=== PATIENT | female | born 1990 | race Caucasian/White ===

== ENCOUNTER 2020-09-28 11:41 | Emergency (ER) | payer BC, MEDICAID, SELFPAY ==
[2020-09-28] VITALS (7 sets, daily range): BP systolic 113–141; BP diastolic 72–97; PULSE 89–124; RESP 18; TEMP 36.4–39.6; O2SAT 94–100; BMI 34.1
--- NOTE | 2020-09-28 12:13 | CT_ITS ---
STUDY: CT ABDOMEN AND PELVIS WITH CONTRAST REASON FOR EXAM: Female, 30 years old. Eval for left pyelo/stone. Left flank pain and vomiting. RADIATION DOSAGE (If Supplied By Facility): CTDIvol = ( 13.485 ) mGy, DLP = ( 1080.94 ) mGycm TECHNIQUE: Transaxial images were obtained from the dome of the diaphragm to the symphysis pubis without oral contrast. IV 100mL Isovue-370 was administered. Sagittal and coronal images were reconstructed. Individualized dose optimization techniques were used for this CT. COMPARISON: None. FINDINGS: Patchy left basilar infiltrate. The visualized portions of the heart are within normal limits. Normal liver. Normal gallbladder and extrahepatic biliary system. Normal spleen. Normal pancreas. Normal bilateral adrenal glands. Normal right kidney. Mild degree of left hydronephrosis due to a 5.8 mm calculus in the proximal left ureter. There is evidence of left perinephric stranding and engorgement of the left kidney. There is a small hiatal hernia. Normal small intestine. Normal colon. The appendix is visualized and appears normal. Normal abdominal aorta. Normal inferior vena cava. Normal retroperitoneum. Normal urinary bladder. Follicles are seen in the ovaries. Normal abdominal wall. Normal osseous structures. CT/Abdomen/Pelvis W IV Cont ONLY IMPRESSION: 5.8 mm pancreas and the proximal left ureter causing left hydronephrosis and left perinephric stranding. Patchy left basilar infiltrate. Electronically Signed: Mark Anthony Lin MD at 14:41 EDT , Service support ,
[2020-09-28] MEDS: 0.9% Normal Saline 1,000 ML 1000 ML IV (12:24)
[2020-09-28] MEDS: Morphine 4 MG/ML Syringe IV (12:24)
[2020-09-28] MEDS: Ondansetron 4 MG/2 ML Vial IV (12:25)
[2020-09-28 12:26] LABS: Absolute Lymphocyte Count 0.48 X10^3/uL (0.83-4.51); Absolute Neutrophil Count 11.2 X10^3/uL (2.0-7.7); Basophil# 0.03 X10^3/uL; Basophil% 0.3 % (0-1); Eosinophil# 0.02 X10^3/uL; Eosinophils% 0.2 % (0-5); Hematocrit 40.4 % (37-47); Hemoglobin 13.6 g/dL (12.0-15.0); Lymphocyte # 0.48 X10^3/ul (0.83-4.51); Mean Corp Hgb Conc 33.7 g/dL (32-36); Mean Platelet Vol. 10.3 fl (6.2-12.0); Monocyte# 0.13 X10^3/uL; Monocyte% 1.1 % (0-10); NRBC Flagged by Analyzer 0 % (0-5); Neutrophil # 11.23 X10^3/uL (2.7-7.7); Neutrophil % 94.1 % (47-70); POSITIVE DIFFERENTIAL YES; Platelet Count 185 K/mm3 (150-450); RBC Distribution Width CV 12.5 % (11.6-14.6); RBC Distribution Width SD 42.5 fl (35.1-43.9); Red Blood Count 4.39 M/mm3 (4.2-5.4); White Blood Count 11.9 K/mm3 (4.4-11.0)
[2020-09-28 12:29] LABS: Differential Indicated SCAN CRITERIA MET
--- NOTE | 2020-09-28 12:32 | EDS_ITS ---
HPI History of Present Illness Chief Complaint: Flank Pain Informant: patient Narrative Narrative: Patient is a 30-year-old female who presents to the emergency department for left-sided flank pain, fever, nausea/vomiting. States her initial symptoms started 1 week ago. She had a urine checked at an urgent care a few days prior which did show blood. She was not given any other medications for treatment. She states that her pain has become severely worse. No radiation of the pain. She states that she does have a history of D&C as well as tubal ligation. No other abdominal surgeries. She does have a history of kidney infections. No known history of kidney stones. She denies any chest pain or shortness of breath. She states that she did have a temperature up to 103. She is been taking Tylenol and ibuprofen at home. She has some burning prior to urination but no increased frequency or hematuria. No change in bowel movements. [facility] Medical History (Updated 09/28/20 @ 15:[address] Cl Calvin DO) Hypothyroidism Home Medications levothyroxine 50 mcg PO DAILY 09/28/20 [History Last Taken Unknown] Allergy/AdvReac Type Severity Reaction Status Date / Time sertraline [From Zoloft] AdvReac PT UNSURE Verified 09/28/20 11:45 OF REACTION Social History Smoking Status: Current every day smoker tobacco type: cigarettes ROS ROS ED Constitutional Constitutional ED: Reports chills and fever(s) Eyes Eyes: Denies change in vision ENT ENT ED: Denies epistaxis or rhinorrhea Cardiovascular Cardiovascular: Denies chest pain or palpitations Respiratory/Chest Respiratory/Chest: Denies cough, dyspnea or dyspnea on exertion Gastrointestinal Gastrointestinal: Reports nausea and vomiting; Denies abdominal pain or diarrhea Genitourinary Genitourinary ED: Reports dysuria; Denies hematuria or urinary frequency Musculoskeletal Musculoskeletal: Reports back pain; Denies neck pain Integumentary Denies rash Neurologic Neurologic: Denies dizziness, headache(s) or weakness EXAM Physical Exam Const Vital Signs: 09/28/20 11:41 09/28/20 11:45 09/28/20 11:50 Temperature 97.5 F L 97.5 F L Temperature Source Temporal Temporal Pulse Rate 89 89 Respiratory Rate 18 18 Respiratory Effort Normal Non-Labored Blood Pressure 121/97 H Blood Pressure Mean 105 Pulse Ox 100 100 Oxygen Delivery Method Room Air Room Air 09/28/20 13:22 09/28/20 14:32 09/28/20 15:19 Temperature 103.2 F H 103 F H Temperature Source Oral Temporal Pulse Rate 124 H Respiratory Rate 18 Respiratory Effort Blood Pressure 113/72 141/77 H Blood Pressure Mean 85 98 Pulse Ox 94 Oxygen Delivery Method 09/28/20 15:36 09/28/20 16:00 Temperature 101.5 F H 100 F H Temperature Source Temporal Pulse Rate 121 H 116 H Respiratory Rate 18 18 Respiratory Effort Blood Pressure 136/82 H 132/74 H Blood Pressure Mean 100 93 Pulse Ox 96 94 Oxygen Delivery Method Room Air Positive well nourished and well developed General Appearance ED: well developed and NAD HEENT Reports normocephalic, head/scalp atraumatic and moist mucous membranes Eyes PERRL and EOMs intact bilaterally Neck supple Chest Wall inspection of chest normal Resp normal respiratory effort and clear to auscultation bilaterally Auscultation: Negative for rales, rhonchi or wheezes Cardio regular rate, regular rhythm and no murmurs GI normal to inspection, nondistended, normoactive bowel sounds and non-tender Palpation: soft; Negative for guarding or rebound tenderness present Back/Spine Back/Spine Narrative: Left-sided CVA tenderness Extremity normal to inspection General Extremety ED: Negative for edema or tenderness General Extremity: Negative for edema Neuro Sensorium / Orientation: alert Motor Exam: strength 5/5 throughout Psych mental status grossly normal Skin no rashes or lesions noted MDM MDM MDM Narrative Medical decision making narrative: Patient presents to the emergency department for left-sided flank pain, fever, vomiting. On arrival to the ED she is afebrile this time but having home fevers. Will check basic lab work along with urine and cultures. CT scan of the abdomen/pelvis being obtained. She is given a dose of morphine and Zofran for symptomatic treatment. Patient's temperature rechecked throughout ED stay and it did elevate to 103. She does have a mild elevation of white blood cell count has mild elevation of her lactic acid. CT scan did show a left ureteral stone with stranding around the left kidney. Unfortunately do not have urology coverage so she will need to be transferred out due to sepsis secondary to infected kidney stone. She is started on antibiotics here. Patient's pain has been difficult to control. She is received hydromorphone, Toradol, morphine, Tylenol. I did speak with [facility] who did accept the patient. We are currently awaiting bed availability and transfer. This time she is signed out due to end of shift. Lab Data Labs: Laboratory Results - last 24 hr 09/28/20 09/28/20 09/28/20 12:00 12:00 12:25 WBC 11.9 H RBC 4.39 Hgb 13.6 Hct 40.4 MCV 92.0 MCH 31.0 MCHC 33.7 RDW Std Deviation 42.5 RDW Coeff of Erika 12.5 Plt Count 185 MPV 10.3 Immature Gran % (Auto) 0.300 Neut % (Auto) 94.1 H Lymph % (Auto) 4.0 L [place] % (Auto) 1.1 Eos % (Auto) 0.2 Baso % (Auto) 0.3 Absolute Neuts (auto) 11.2 H Absolute Lymphs (auto) 0.48 L Nucleated RBC % 0 Differential Comment COMMENT Sodium 136 Potassium 3.4 L Chloride 105 Carbon Dioxide 26.0 Anion Gap 5 BUN 11 Creatinine 0.88 Estim Creat Clear Calc 84.11 Est GFR (MDRD) Af Amer 97 Est GFR (MDRD) Non-Af 81 BUN/Creatinine Ratio 12.6 Glucose 103 Lactic Acid 2.3 H* Calcium 8.8 Total Bilirubin 1.40 H AST 31 ALT 44 Alkaline Phosphatase 67 Total Protein 7.8 Albumin 3.8 Globulin 4.0 Albumin/Globulin Ratio 1.0 Urine Color Urine Clarity Urine pH Ur Specific [place] Urine Protein Urine Glucose (UA) Urine Ketones Urine Occult Blood Urine Nitrite Urine Bilirubin Urine Urobilinogen Ur Leukocyte Esterase Urine RBC Urine WBC Ur Squamous Epith Cells Urine Bacteria Urine Mucus Urine Test 09/28/20 09/28/20 12:55 12:55 WBC RBC Hgb Hct MCV MCH MCHC RDW Std Deviation RDW Coeff of Erika Plt Count MPV Immature Gran % (Auto) Neut % (Auto) Lymph % (Auto) [place] % (Auto) Eos % (Auto) Baso % (Auto) Absolute Neuts (auto) Absolute Lymphs (auto) Nucleated RBC % Differential Comment Sodium Potassium Chloride Carbon Dioxide Anion Gap BUN Creatinine Estim Creat Clear Calc Est GFR (MDRD) Af Amer Est GFR (MDRD) Non-Af BUN/Creatinine Ratio Glucose Lactic Acid Calcium Total Bilirubin AST ALT Alkaline Phosphatase Total Protein Albumin Globulin Albumin/Globulin Ratio Urine Color Yellow Urine Clarity Cloudy Urine pH 7.0 Ur Specific [place] 1.010 Urine Protein 30 H Urine Glucose (UA) Normal Urine Ketones Negative Urine Occult Blood 150 H Urine Nitrite Negative Urine Bilirubin Negative Urine Urobilinogen Normal Ur Leukocyte Esterase 500 H Urine RBC 5-10 SEEN Urine WBC >100 SEEN Ur Squamous Epith Cells 0-5 SEEN Urine Bacteria 0 SEEN Urine Mucus 0 SEEN Urine Test Negative Radiography Diagnostic Testing: Radiology Impression Abdomen/Pelvis CT 09/28/20 12:13 IMPRESSION: 5.8 mm pancreas and the proximal left ureter causing left hydronephrosis and left perinephric stranding. Patchy left basilar infiltrate. Electronically Signed: Mark Anthony Lin MD at 14:41 EDT , Service support , Discharge Plan Triage Chief Complaint: Flank Pain ED Provider: Cl Calvin Dx/Rx/DC Orders Clinical Impression: Sepsis, Kidney stone, UTI (urinary tract infection) Prescriptions: No Action levothyroxine 50 mcg tablet 50 mcg PO DAILY RF: 0 Primary Care Provider: Care Physician,No Primary Referrals: Care Physician,No Primary [Primary Care Provider] - Disposition Disposition: Acute Care Hospital Discharge Location: [facility] Discharge Date/Time: 09/28/20 17:05
[2020-09-28 12:41] LABS: AST(SGOT) 31 U/L (15-37); Alanine Aminotransfer ALT/SGPT 44 U/L (13-56); Albumin, Serum 3.8 g/dL (3.2-5.0); Alkaline Phosphatase 67 U/L (45-117); Anion Gap 5 (5-15); BUN 11 mg/dL (7-18); BUN/Creat Ratio 12.6 RATIO (10-20); Calcium,Total 8.8 mg/dL (8.5-10.1); Chloride 105 mmol/L (98-107); Creatinine, Serum 0.88 mg/dL (0.55-1.02); EST Glomerular Filtration Rate 81 mL/min (>60); Est Glom Filt Rate - Afr Amer 97 mL/min (>60); Estimated Creatinine Clearance 84.11 ml/min; Glucose 103 mg/dL (74-106); Potassium 3.4 mmol/L (3.5-5.1); Protein, Total 7.8 g/dL (6.4-8.2); Sodium Level 136 mmol/L (136-145)
[2020-09-28] MEDS: HYDROmorphone 1 MG/ML Syringe IV ×2 (12:54→17:28)
--- NOTE | 2020-09-28 12:57 | CM.ED ---
SW Note Referral Source: Case Find Referral Reason: No Primary Care Physican (PCP) SW met with patient and her in the room. SW explained that a review of the chart noted that patient had no PCP. SW provided patient's with list of PCP at [facility]. SW asked if any additional needs and patient and indicated no further needs. Plan: Provided patient with list of PCP Bre SANCHEZ
[2020-09-28 13:03] LABS: Lactic Acid 2.3 mmol/L (0.4-1.9)
[2020-09-28 13:03] LABS: Bacteria 0 SEEN /hpf (None Seen); Mucous, Urine 0 SEEN /hpf (<or=2+)
[2020-09-28 13:12] LABS: Color, Urine Yellow (Yellow); Glucose, Dipstick Normal (Normal); Internal QC Validated? YES +Cl - CLEAR BKGD; Ketone-Dipstick Negative (Negative); Leukocyte Esterase-Dipstick 500 /ul (Negative); Nitrite-Dipstick Negative (Negative); Occult Blood-Urine 150 /ul (Negative); Pregnancy, Urine Negative Negative; Protein-Dipstick 30 mg/dl (Negative); Urine Bilirubin Dipstick Negative (Negative); Urine Clarity Cloudy (Clear); Urine Urobilinogen Normal (Normal)
[2020-09-28 13:24] LABS: Squamous Epithelial Cells - UA 0-5 SEEN /hpf (5-10); White Blood Cells >100 SEEN /hpf (0-5)
[2020-09-28 13:25] LABS: Red Blood Cells-Urine 5-10 SEEN /hpf (0-5)
[2020-09-28] MEDS: Acetaminophen 325 MG Tablet 650 MG PO (14:36)
[2020-09-28] MEDS: Ketorolac 15 MG/ML Vial IV (14:37)
[2020-09-28] MEDS: 0.9% Normal Saline 1,000 ML 125 ML IV (15:24)
[2020-09-28 16:32] LABS: Reflex Lactate? Y
--- NOTE | 2020-09-29 02:25 | ED.RN ---
POSITIVE BLOOD CULTURES REPORTED TO ERIC SU[facility] AT [facility] OVER THE PHONE. RESULTS WERE ALSO FAXED TO [id number],
== END 2020-09-28 17:05 | disposition short-term general hospital (02) ==
PROVIDERS: Emergency Provider Emergency Medicine
DX: A41.9 Sepsis, unspecified organism (principal); N13.6 Pyonephrosis; E03.9 Hypothyroidism, unspecified; F17.210 Nicotine dependence, cigarettes, uncomplicated; Z79.899 Other long term (current) drug therapy; Z87.440 Personal history of urinary (tract) infections
CPT/HCPCS: 74177; 80053; 81001; 81025; 83605; 85025; 87040; 87077; 87086; 87088; 87186; 87426; 96365; 96366; 96375; 96376; 99285; J7030; Q9967; A4216; J0696; J2405

== ENCOUNTER 2020-10-16 11:21 | Emergency (ER) | payer BC, MEDICAID, SELFPAY ==
[2020-10-16 11:21] VITALS: BP 109/78; PULSE 84; RESP 16; TEMP 36.3; O2SAT 99; BMI 33.5
--- NOTE | 2020-10-16 11:45 | CT_ITS ---
EXAM: CT ABDOMEN AND PELVIS WITHOUT INTRAVENOUS CONTRAST : 1990 CLINICAL INDICATION: Eval ureteral stone TECHNIQUE: Helically acquired images were obtained of the abdomen and pelvis without intravenous contrast. This CT exam was performed using one or more of the following dose reduction techniques: automated exposure control, adjustment of the mA and/or kV according to patient size, and/or use of iterative reconstruction technique. This report was created using [employer] report generation technology. COMPARISON: 09/28/2020 FINDINGS: LOWER THORAX: Unremarkable. Lung bases are clear. No cardiomegaly. No significant pericardial effusion. ABDOMEN: LIVER: Unremarkable. Homogeneous. GALLBLADDER AND BILE DUCTS: Unremarkable. No calcified gallstones. No gallbladder distention or wall edema. No intra- or extrahepatic biliary ductal dilation. PANCREAS: Unremarkable. No focal cystic mass. SPLEEN: Unremarkable. Normal size without focal cystic or solid mass. ADRENALS: Unremarkable. No nodules. KIDNEYS AND URETERS: There is right-sided hydronephrosis. There is a 6 mm stone in the proximal right ureter. Unchanged from the reference exam. Normal renal size and position. STOMACH AND BOWEL: Unremarkable. No stomach or bowel distention. No focal inflammatory change. PELVIS: APPENDIX: No evidence of acute appendicitis. BLADDER: Unremarkable. REPRODUCTIVE: Unremarkable as visualized. No mass. ABDOMEN and PELVIS: INTRAPERITONEAL SPACE: Unremarkable. No ascites or other fluid collection. No free air. BONES/JOINTS: Unremarkable. No suspicious lytic or blastic abnormality. SOFT TISSUES: Unremarkable. No discrete abdominal or pelvic wall hernia. VASCULATURE: Unremarkable. Abdominal aorta is non-dilated. LYMPH NODES: Unremarkable. No enlarged lymph nodes. CT/Abdomen/Pelvis without Cont IMPRESSION: Obstruction of the left collecting system due to a 6 mm stone in the proximal ureter. This does not appear to be significantly changed from the reference examination. Individualized dose optimization techniques were used for this CT. at 1247 Reported and signed by: Bj Jiang MD Electronically Signed: Bj Jiang MD at 12:46 EDT Tel , Service support ,
--- NOTE | 2020-10-16 11:51 | EDS_ITS ---
HPI History of Present Illness Chief Complaint: Flank Pain Informant: patient Narrative Narrative: Patient is a 30-year-old female who presents to the emergency department for left flank pain. This started on Thursday and has been becoming progressively worse. She has been taking ibuprofen and Tylenol for her symptoms. She was seen here in the emergency department on the of this month and diagnosed with a septic kidney stone. She had to be transferred to outside facility at that time. She states that she was discharged after antibiotics and was doing much better. She did not have pain until it returned 3 days ago. She denies any urinary symptoms. She does have some chills but denies any fevers. She has been nauseous but not vomiting. No change in moving her bowels. She states she was sent home with antibiotics and took them all except for the last day which she ended on the . She currently rates the flank pain as a 5 out of 10. It does not radiate to her abdomen. [facility] Medical History (Updated 10/16/20 @ 13:[address] Cl Calvin DO) Hypothyroidism Home Medications levothyroxine 50 mcg PO DAILY 09/28/20 [History Last Taken Unknown] cephalexin 500 mg PO BID 10 Days #20 cap 10/16/20 [Rx Last Taken Unknown] hydrocodone-acetaminophen 1 tab PO Q6H PRN PRN 3 Days #10 tablet 10/16/20 [Rx Last Taken Unknown] naproxen [Naprosyn] 500 mg PO BID PRN 10 Days #20 tab 10/16/20 [Rx Last Taken Unknown] Allergy/AdvReac Type Severity Reaction Status Date / Time shellfish derived Allergy PT UNSURE Verified 10/16/20 11:24 OF REACTION sertraline [From Zoloft] AdvReac PT UNSURE Verified 09/28/20 11:45 OF REACTION Social History Smoking Status: Current every day smoker tobacco type: cigarettes ROS ROS ED Constitutional Constitutional ED: Reports chills; Denies fever(s) Eyes Eyes: Denies change in vision ENT ENT ED: Denies epistaxis or rhinorrhea Cardiovascular Cardiovascular: Denies chest pain or palpitations Respiratory/Chest Respiratory/Chest: Denies cough, dyspnea or dyspnea on exertion Gastrointestinal Gastrointestinal: Reports nausea; Denies abdominal pain, diarrhea or vomiting Genitourinary Genitourinary ED: Denies dysuria, hematuria or urinary frequency Musculoskeletal Musculoskeletal: Reports back pain; Denies neck pain Integumentary Denies rash Neurologic Neurologic: Denies dizziness, headache(s) or weakness EXAM Physical Exam Const Vital Signs: 10/16/20 11:21 10/16/20 11:51 Temperature 97.4 F L Temperature Source Temporal Pulse Rate 84 Respiratory Rate 16 Respiratory Effort Normal Non-Labored Respiratory Pattern Normal Blood Pressure 109/78 Blood Pressure Mean 88 Pulse Ox 99 Oxygen Delivery Method Room Air Positive well nourished and well developed General Appearance ED: well developed and NAD HEENT Reports normocephalic and head/scalp atraumatic Eyes PERRL and EOMs intact bilaterally Neck supple Chest Wall inspection of chest normal Resp normal respiratory effort and clear to auscultation bilaterally Auscultation: Negative for rales, rhonchi or wheezes Cardio regular rate, regular rhythm and no murmurs GI normal to inspection, nondistended, normoactive bowel sounds and non-tender Palpation: soft; Negative for guarding or rebound tenderness present Back/Spine Back/Spine Narrative: Left CVA tenderness. Extremity normal to inspection General Extremety ED: Negative for edema or tenderness General Extremity: Negative for edema Neuro Sensorium / Orientation: alert Motor Exam: strength 5/5 throughout Psych mental status grossly normal Skin no rashes or lesions noted MDM MDM MDM Narrative Medical decision making narrative: Patient presents to the emergency department for left flank pain. She was recently diagnosed with septic kidney stone earlier this month. She did complete antibiotics for this. She denies having surgery for the stone and they told her it was too large to pass. On arrival to the ED vital signs within normal limits. She is in no acute distress currently. Will recheck CT scan and urinalysis. Patient CT scan did still show the 6 mm proximal ureteral stone. Urine does show 1+ bacteria with 10-25 white blood cells, 500 leukocyte esterase but no nitrites. She otherwise is well-appearing. She is afebrile. No evidence of sepsis. I did call the urologist at [facility] who took care of her previously. They were actually able to make an appointment available with for her tomorrow at 11 AM. Patient does feel comfortable being discharged. Given the fact she has grown out Proteus in her bloodstream as well as the urine at the last hospital stay we will cover her with antibiotics. She is given a first dose here and given a prescription. She is also given a prescription for pain medication to take as needed. Return precautions are reviewed with her including develop any fevers, chills, worsening pain. She is agreeable with this plan. All questions were answered. Lab Data Labs: Laboratory Results - last 24 hr 10/16/20 11:52 Urine Color Yellow Urine Clarity Clear Urine pH 5.0 Ur Specific [place] 1.015 Urine Protein 30 H Urine Glucose (UA) Normal Urine Ketones Negative Urine Occult Blood 10 H Urine Nitrite Negative Urine Bilirubin Negative Urine Urobilinogen 1 H Ur Leukocyte Esterase 500 H Urine RBC 0 SEEN Urine WBC 10-25 SEEN Ur Squamous Epith Cells 0-5 SEEN Urine Bacteria 1+ Urine Mucus 2+ Radiography Diagnostic Testing: Radiology Impression Abdomen/Pelvis CT 10/16/20 11:45 IMPRESSION: Obstruction of the left collecting system due to a 6 mm stone in the proximal ureter. This does not appear to be significantly changed from the reference examination. Individualized dose optimization techniques were used for this CT. at 1247 Reported and signed by: Bj Jiang MD Electronically Signed: Bj Jiang MD at 12:46 EDT Tel , Service support , Discharge Plan Triage Chief Complaint: Flank Pain ED Provider: Cl Calvin Dx/Rx/DC Orders Clinical Impression: Renal colic on left side Instructions: ED Kidney Stone w/ Colic Prescriptions: New hydrocodone-acetaminophen 5-325 mg tablet 1 tab PO Q6H PRN PRN (Reason: Pain) 3 Days Qty: 10 RF: 0 naproxen [Naprosyn] 500 mg tablet 500 mg PO BID PRN (Reason: pain) 10 Days Qty: 20 RF: 0 cephalexin 500 mg capsule 500 mg PO BID 10 Days Qty: 20 RF: 0 No Action levothyroxine 50 mcg tablet 50 mcg PO DAILY RF: 0 Stand Alone Forms: ED Work / School Excuse Primary Care Provider: Care Physician,No Primary Referrals: Care Physician,No Primary [Primary Care Provider] - Activity Restrictions/Additional Instructions: Please follow-up with urologist tomorrow 10/17/2020. The urologist office is at [address] [place] [id number]. The appointment is at 11 AM and they requested that you arrive there at 10:30 AM. Disposition Disposition: Home, Self Care Discharge Date/Time: 10/16/20 13:55
[2020-10-16 11:57] LABS: Red Blood Cells-Urine 0 SEEN /hpf (0-5)
[2020-10-16] MEDS: Ketorolac 30 MG/ML Syringe IM (12:02)
[2020-10-16 12:03] LABS: Color, Urine Yellow (Yellow); Glucose, Dipstick Normal (Normal); Ketone-Dipstick Negative (Negative); Leukocyte Esterase-Dipstick 500 /ul (Negative); Nitrite-Dipstick Negative (Negative); Occult Blood-Urine 10 /ul (Negative); Protein-Dipstick 30 mg/dl (Negative); Specific Gravity, Urine 1.015 (1.002-1.030); Urine Bilirubin Dipstick Negative (Negative); Urine Clarity Clear (Clear); Urine Urobilinogen 1 mg/dl (Normal)
[2020-10-16 12:18] LABS: Bacteria 1+ /hpf (None Seen); Mucous, Urine 2+ /hpf (<or=2+); Squamous Epithelial Cells - UA 0-5 SEEN /hpf (5-10); White Blood Cells 10-25 SEEN /hpf (0-5)
--- NOTE | 2020-10-16 13:38 | CM.ED ---
KATERYNA Note: Referral Source: Case Find Referral Reason: No primary care physician (PCP) SW reviewed chart and noted that patient did not have PCP. KATERYNA provided patient with handout from [facility] Physicians List including [facility] and [facility] MD. No further issues or needs identified. SW remains available. Plan: Home with resources Bre Bradshaw
[2020-10-16] MEDS: Cephalexin 250 MG Capsule 500 MG PO (13:54)
== END 2020-10-16 13:55 | disposition home or self-care (01) ==
PROVIDERS: Emergency Provider Emergency Medicine
DX: N23 Unspecified renal colic (principal); F17.210 Nicotine dependence, cigarettes, uncomplicated; E03.9 Hypothyroidism, unspecified; Z79.899 Other long term (current) drug therapy
CPT/HCPCS: 74176; 81001; 87086; 87088; 96372; 99283

== ENCOUNTER 2021-05-19 13:55 | Emergency (ER) | payer MEDICAID, SELFPAY ==
[2021-05-19 13:55] VITALS: BP 114/80; PULSE 84; RESP 16; TEMP 37.7; O2SAT 100; BMI 29.1
--- NOTE | 2021-05-19 14:11 | CT_ITS ---
STUDY: CT ABDOMEN AND PELVIS WITHOUT CONTRAST REASON FOR EXAM: Female, 30 years old. Pain RADIATION DOSAGE (If Supplied By Facility): CTDIvol = ( 8.55 ) mGy, DLP = ( 459.54 ) mGycm TECHNIQUE: Transaxial images were obtained from the dome of the diaphragm to the symphysis pubis without oral contrast, and without intravenous contrast. Sagittal and coronal images were reconstructed. Individualized dose optimization techniques were used for this CT. COMPARISON: 10/16/2020 FINDINGS: Minimal dependent atelectasis in the left lower lobe. Unremarkable liver, spleen, pancreas, adrenals, and gallbladder on this unenhanced study. A 0.2 cm nonobstructing stone in the lower pole of the left kidney. No additional radiopaque urolithiasis on either side. Normal appendix. Small to moderate amount of retained stool in the colon with no evidence of bowel obstruction. No free air in the abdomen and pelvis. No bulky adenopathy. No abdominal aortic aneurysm. Sections through the pelvis demonstrate no adnexal mass. No radiopaque stone in the urinary bladder. Trace free fluid in the cul-de-sac. No acute osseous abnormality. CT/Abdomen/Pelvis without Cont IMPRESSION: A tiny nonobstructing stone in the lower pole of the left kidney. No other acute finding in the abdomen and pelvis on this unenhanced study. Electronically Signed: Jeremy Boss MD at 15:41 EDT ,
--- NOTE | 2021-05-19 14:12 | EX.ED.DYSGE1 ---
HPI History of Present Illness Chief Complaint: General Illness Detail of Chief Complaint: Flank pain Informant: patient and spouse/S.O. Onset/Context/Timing Onset: Days Context: Gradual Onset Timing: Continuous Current Severity: Moderate Maximum Severity: Moderate Narrative Narrative: 30-year-old female history of hypothyroidism. Prior history of a kidney stone with UTI and sepsis and had that the stones surgically removed. States that she has had right flank pain for last 2 days. Denies any dysuria. She said she treated with Motrin with some relief. She had a fever as high as 103. She denies any nausea vomiting or diarrhea. No cough. No abdominal pain other than the flank pain. Prior similar symptoms: Yes Recent Illness/Hospitalization: No PFSH PFSH Medical History Hypothyroidism Home Medications levothyroxine 50 mcg PO DAILY 09/28/20 [History Last Taken Unknown] diazepam [Valium] 5 mg PO TID PRN 4 Days #10 tab 05/19/21 [Rx Last Taken Unknown] Allergy/AdvReac Type Severity Reaction Status Date / Time shellfish derived Allergy PT UNSURE Verified 10/16/20 11:24 OF REACTION sertraline [From Zoloft] AdvReac PT UNSURE Verified 09/28/20 11:45 OF REACTION Social History Smoking Status: Current every day smoker tobacco type: cigarettes ROS ROS ED ROS Narrative Right flank pain. Fever. Constitutional Constitutional ED: Reports fever(s) Eyes Eyes: Denies change in vision ENT ENT ED: Denies ear pain Cardiovascular Cardiovascular: Denies chest pain or palpitations Respiratory/Chest Respiratory/Chest: Denies cough or dyspnea Gastrointestinal Gastrointestinal: Denies abdominal pain, diarrhea, nausea or vomiting Genitourinary Genitourinary ED: Denies dysuria or hematuria Musculoskeletal Musculoskeletal: Reports back pain and other Details: Right flank pain. ; Denies myalgias Integumentary Denies rash Neurologic Neurologic: Denies headache(s) Endocrine Endocrinology: Denies polyuria Allergic/Immunologic Allergic/Immunologic ED: Denies urticaria EXAM Physical Exam Narrative Exam Narrative: 30-year-old no acute distress. Vital signs are stable. She has a temperature nine 9.8. Does not look septic or toxic. H EENT exam unremarkable. Neck nontender. No lymphadenopathy. Lungs clear to auscultation bilaterally. Heart regular rhythm rate about 85 no murmur. Abdomen soft, nontender, nondistended normal bowel sounds no peritoneal signs. No right upper or lower quadrant tenderness. No hernia or mass. Moving all 4 extremities. Back right CVA tenderness. Otherwise unremarkable. Neurologically she is awake and alert. Const Vital Signs: 05/19/21 13:55 05/19/21 14:48 Temperature 99.8 F H Temperature Source Temporal Pulse Rate 84 Respiratory Rate 16 Respiratory Effort Normal Respiratory Pattern Normal Blood Pressure 114/80 Blood Pressure Mean 91 Pulse Ox 100 Oxygen Delivery Method Room Air Positive well nourished and well developed; Negative for obese, cachectic, contractures or unkempt General Appearance ED: well developed and NAD; Negative for unkempt, cachectic, contractures, cyanotic, diaphoretic or pallor Nutritional Appearance: Negative for cachectic or obese HEENT Reports moist mucous membranes Negative for trauma or tenderness Eyes PERRL and EOMs intact bilaterally General Eye ED: Negative for pale conjunctiva or scleral icterus Neck no lymphadenopathy, supple and no JVD General: Negative for tenderness Chest Wall inspection of chest normal and palpation of chest normal Resp normal respiratory effort and clear to auscultation bilaterally Effort and Inspection: Negative for pain with movement Auscultation: Negative for rales, rhonchi or wheezes Cardio regular rate, regular rhythm, S1 normal heart sound, S2 normal heart sound and no murmurs GI normal to inspection, nondistended, normoactive bowel sounds, non-tender, non-distended and no masses Auscultation: normoactive bowel sounds Palpation: soft; Negative for tender, guarding or rebound tenderness present Back/Spine Negative for no CVA tenderness General Back: CVA tenderness Cervical Spine: Negative for cervical spine tenderness Thoracic Spine / Upper Back: Negative for thoracic spinal tenderness or paraspinal muscle tenderness Extremity normal to inspection General Extremety ED: Negative for edema or tenderness General Extremity: Negative for edema Neuro oriented x3 and CN's II-XII intact bilaterally Sensorium / Orientation: alert; Negative for orientation impaired, lethargic or stuporous Motor Exam: strength 5/5 throughout Psych mental status grossly normal Appearance: Negative for unkempt Attitude: No agitated Mood & Affect: Negative for depressed or tearful Skin no rashes or lesions noted, no wounds and No skin turgor normal General Skin Exam: Negative for elasticity normal, jaundice or pallor MDM MDM MDM Narrative Medical decision making narrative: 30-year-old female complaining of right flank pain. History of stones and previously a stone with UTI became septic. CAT scan labs are pending. Treated with IV morphine, Zofran and Toradol along with IV fluids. She has had a prior tubal ligation. Exam 3:30 PM patient is doing better but still has pain. Her significant other at bedside asked me if this could at all possible be musculoskeletal a 20 minutes very good possibility Coso forward on the specific cause and her tests are coming back normal. She does have reproducible back pain. She will be given another dose of morphine. Urine is also negative. This appears to be secondary to musculoskeletal back pain. She has no signs of urinary tract infection or kidney stone. Discharged home with a prescription of Valium. For muscle spasm. Otherwise ibuprofen, hot shower massage. Lab Data Attestation: I reviewed the patient's lab results. Lab results narrative: CBC shows a white count of 3.5 H&H of 13 and 38. Platelets 168. No bands. Serum test negative. Electrolytes unremarkable gap of 5 normal BUN and creatinine. Glucose 78. Urinalysis normal. No white cells or red cells. Labs: Laboratory Results - last 24 hr 05/19/21 05/19/21 05/19/21 14:45 14:45 14:45 WBC 3.5 L RBC 4.27 Hgb 13.0 Hct 38.1 MCV 89.2 MCH 30.4 MCHC 34.1 RDW Std Deviation 40.5 RDW Coeff of Erika 12.4 Plt Count 168 MPV 10.8 Immature Gran % (Auto) 0.300 Neut % (Auto) 78.8 H Lymph % (Auto) 12.4 L [place] % (Auto) 7.6 Eos % (Auto) 0.3 Baso % (Auto) 0.6 Absolute Neuts (auto) 2.8 Absolute Lymphs (auto) 0.44 L Nucleated RBC % 0 Differential Comment SCANNED Diff Path Review May foll Sodium 136 Potassium 4.2 Chloride 106 Carbon Dioxide 25.0 Anion Gap 5 BUN 7 Creatinine 0.66 Estim Creat Clear Calc 112.15 Est GFR (MDRD) Af Amer 135 Est GFR (MDRD) Non-Af 111 BUN/Creatinine Ratio 10.6 Glucose 78 Calcium 8.5 Serum , Qual NEGATIVE Urine Color Urine Clarity Urine pH Ur Specific [place] Urine Protein Urine Glucose (UA) Urine Ketones Urine Occult Blood Urine Nitrite Urine Bilirubin Urine Urobilinogen Ur Leukocyte Esterase Urine RBC Urine WBC Ur Squamous Epith Cells Urine Bacteria Urine Mucus 05/19/21 15:15 WBC RBC Hgb Hct MCV MCH MCHC RDW Std Deviation RDW Coeff of Erika Plt Count MPV Immature Gran % (Auto) Neut % (Auto) Lymph % (Auto) [place] % (Auto) Eos % (Auto) Baso % (Auto) Absolute Neuts (auto) Absolute Lymphs (auto) Nucleated RBC % Differential Comment Diff Path Review Sodium Potassium Chloride Carbon Dioxide Anion Gap BUN Creatinine Estim Creat Clear Calc Est GFR (MDRD) Af Amer Est GFR (MDRD) Non-Af BUN/Creatinine Ratio Glucose Calcium Serum , Qual Urine Color Yellow Urine Clarity Clear Urine pH 8.0 Ur Specific [place] 1.010 Urine Protein Negative Urine Glucose (UA) Normal Urine Ketones Negative Urine Occult Blood Negative Urine Nitrite Negative Urine Bilirubin Negative Urine Urobilinogen Normal Ur Leukocyte Esterase Negative Urine RBC 0 SEEN Urine WBC 0 SEEN Ur Squamous Epith Cells 0 SEEN Urine Bacteria 0 SEEN Urine Mucus 0 SEEN Radiography Diagnostic Testing: Clinical Impression(s) from Imaging Studies Abdomen/Pelvis CT 05/19/21 14:11 IMPRESSION: A tiny nonobstructing stone in the lower pole of the left kidney. No other acute finding in the abdomen and pelvis on this unenhanced study. Electronically Signed: Jeremy Boss MD at 15:41 EDT Reading Location ID and State: [address] [place] [address] Tel , Service support , Discharge Plan Triage Chief Complaint: General Illness ED Provider: Laurent Ya Dx/Rx/DC Orders Clinical Impression: Acute flank pain, Back muscle spasm Instructions: ED Muscle Spasm Prescriptions: New diazepam [Valium] 5 mg tablet 5 mg PO TID PRN (Reason: muscle spasm) 4 Days Qty: 10 RF: 0 No Action levothyroxine 50 mcg tablet 50 mcg PO DAILY RF: 0 Primary Care Provider: Care Physician,No Primary Referrals: Jeremiah Jiménez MD [STAFF PHYSICIAN] - 3-5 Days if not improving Care Physician,No Primary [Primary Care Provider] - Activity Restrictions/Additional Instructions: Your back pain appears to be muscle spasms. There is no signs of a kidney stone. No signs of infection. Motrin for pain and inflammation. Valium as a muscle relaxer. Hot shower. Warm bath. Massage. This should progressively get better. Disposition Disposition: Home, Self Care
[2021-05-19] MEDS: 0.9% Normal Saline 1,000 ML 1000 ML IV (14:35)
[2021-05-19] MEDS: morphine 8 MG/ML Syringe IV (14:36)
[2021-05-19] MEDS: Ondansetron 4 MG/2 ML Vial IV (14:36)
[2021-05-19] MEDS: Ketorolac 30 MG/ML Syringe IV (14:36)
[2021-05-19 14:51] LABS: Absolute Lymphocyte Count 0.44 X10^3/uL (0.83-4.51); Absolute Neutrophil Count 2.8 X10^3/uL (2.0-7.7); Basophil# 0.02 X10^3/uL; Basophil% 0.6 % (0-1); Differential Indicated SCAN CRITERIA MET; Eosinophil# 0.01 X10^3/uL; Eosinophils% 0.3 % (0-5); Hematocrit 38.1 % (37-47); Lymphocyte # 0.44 X10^3/ul (0.83-4.51); Lymphocyte % 12.4 % (19-41); Mean Corp Hgb Conc 34.1 g/dL (32-36); Mean Corpuscular Hgb 30.4 pg (27.0-32.0); Mean Corpuscular Volume 89.2 fL (81-99); Mean Platelet Vol. 10.8 fl (6.2-12.0); Monocyte# 0.27 X10^3/uL; Monocyte% 7.6 % (0-10); NRBC Flagged by Analyzer 0 % (0-5); Neutrophil # 2.79 X10^3/uL (2.7-7.7); Neutrophil % 78.8 % (47-70); POSITIVE DIFFERENTIAL YES; Platelet Count 168 K/mm3 (150-450); RBC Distribution Width CV 12.4 % (11.6-14.6); RBC Distribution Width SD 40.5 fl (35.1-43.9); Red Blood Count 4.27 M/mm3 (4.2-5.4); White Blood Count 3.5 K/mm3 (4.4-11.0)
[2021-05-19 15:05] LABS: Internal QC Validated? YES +Cl - CLEAR BKGD; Pregnancy, Serum, hCG Quali. NEGATIVE Negative
[2021-05-19 15:21] LABS: Bacteria 0 SEEN /hpf (None Seen); Mucous, Urine 0 SEEN /hpf (<or=2+); Red Blood Cells-Urine 0 SEEN /hpf (0-5); Squamous Epithelial Cells - UA 0 SEEN /hpf (5-10); White Blood Cells 0 SEEN /hpf (0-5)
[2021-05-19 15:28] LABS: Anion Gap 5 (5-15); BUN 7 mg/dL (7-18); BUN/Creat Ratio 10.6 RATIO (10-20); Calcium,Total 8.5 mg/dL (8.5-10.1); Chloride 106 mmol/L (98-107); Creatinine, Serum 0.66 mg/dL (0.55-1.02); EST Glomerular Filtration Rate 111 mL/min (>60); Est Glom Filt Rate - Afr Amer 135 mL/min (>60); Estimated Creatinine Clearance 112.15 ml/min; Glucose 78 mg/dL (74-106); Potassium 4.2 mmol/L (3.5-5.1); Sodium Level 136 mmol/L (136-145)
[2021-05-19 15:28] LABS: Color, Urine Yellow (Yellow); Glucose, Dipstick Normal (Normal); Ketone-Dipstick Negative (Negative); Leukocyte Esterase-Dipstick Negative /ul (Negative); Nitrite-Dipstick Negative (Negative); Occult Blood-Urine Negative /ul (Negative); Protein-Dipstick Negative (Negative); Urine Bilirubin Dipstick Negative (Negative); Urine Clarity Clear (Clear); Urine Urobilinogen Normal (Normal)
[2021-05-19] MEDS: morphine 8 MG/ML Syringe 6 MG IV (15:48)
[2021-05-19 15:49] LABS: Differential Comment SCANNED
[2021-05-20 12:43] LABS: Pathologist Review Reviewed
== END 2021-05-19 16:53 | disposition home or self-care (01) ==
PROVIDERS: Emergency Provider Emergency Medicine; Visit Provider Emergency Medicine
DX: M62.830 Muscle spasm of back (principal); F17.210 Nicotine dependence, cigarettes, uncomplicated; E03.9 Hypothyroidism, unspecified; Z79.899 Other long term (current) drug therapy; Z87.440 Personal history of urinary (tract) infections; Z87.442 Personal history of urinary calculi
CPT/HCPCS: 74176; 80048; 81001; 84703; 85025; 96361; 96374; 96375; 96376; 99284; J7030; A4216; J2405

== ENCOUNTER 2021-05-21 06:01 | Emergency (ER) | payer MEDICAID, SELFPAY ==
[2021-05-21 06:02] VITALS: BP 112/71; PULSE 62; RESP 16; TEMP 36.2; O2SAT 100; BMI 27.8
--- NOTE | 2021-05-21 06:25 | CT_ITS ---
STUDY: CT ABDOMEN AND PELVIS WITH CONTRAST REASON FOR EXAM: Female, 30 years old. Flank pain / ? Pyelonephritis RADIATION DOSAGE (If Supplied By Facility): CTDIvol = ( 16.45 ) mGy, DLP = ( 1827.89 ) mGycm TECHNIQUE: Transaxial images were obtained from the dome of the diaphragm to the symphysis pubis without oral contrast. IV 100mL Isovue-300 was administered. Sagittal and coronal images were reconstructed. Individualized dose optimization techniques were used for this CT. COMPARISON: 09/28/2020, 05/19/2021 FINDINGS: The visualized lung bases are unremarkable. The visualized portions of the heart are within normal limits. Normal liver. Normal gallbladder and extrahepatic biliary system. Normal spleen. Normal pancreas. Normal bilateral adrenal glands. Normal right kidney. Tiny inferior left renal collecting system stone or demonstrated without finding to suggest obstruction. Mild left renal cortical scarring redemonstrated. Otherwise normal left kidney. Normal visualized stomach. Normal small intestine. Normal colon. The appendix is visualized and appears normal. Normal abdominal aorta. Normal inferior vena cava. Normal retroperitoneum. Normal urinary bladder. Normal visualized uterus. Normal abdominal wall. Normal thoracolumbar vertebral alignment. CT/Abdomen/Pelvis W IV Cont ONLY IMPRESSION: Nonobstructing left renal collecting system calculus redemonstrated. No finding to suggest pyelonephritis. No acute abnormal finding in the abdomen or pelvis. Electronically Signed: Yoel Hart MD at 7:56 EDT ,
[2021-05-21] MEDS: 0.9% Normal Saline 1,000 ML 999 ML IV (06:38)
[2021-05-21] MEDS: Ondansetron 4 MG/2 ML Vial IV (06:39)
[2021-05-21] MEDS: Morphine 4 MG/ML Syringe IV (06:39)
[2021-05-21 06:49] LABS: Absolute Lymphocyte Count 1.29 X10^3/uL (0.83-4.51); Absolute Neutrophil Count 1.9 X10^3/uL (2.0-7.7); Basophil# 0.03 X10^3/uL; Basophil% 0.8 % (0-1); Eosinophil# 0.12 X10^3/uL; Eosinophils% 3.2 % (0-5); Hematocrit 39.6 % (37-47); Lymphocyte # 1.29 X10^3/ul (0.83-4.51); Lymphocyte % 34.6 % (19-41); Mean Corp Hgb Conc 32.8 g/dL (32-36); Mean Corpuscular Hgb 30.1 pg (27.0-32.0); Mean Corpuscular Volume 91.7 fL (81-99); Mean Platelet Vol. 10.9 fl (6.2-12.0); Monocyte# 0.34 X10^3/uL; Monocyte% 9.1 % (0-10); NRBC Flagged by Analyzer 0 % (0-5); Neutrophil # 1.94 X10^3/uL (2.7-7.7); Platelet Count 164 K/mm3 (150-450); RBC Distribution Width CV 12.3 % (11.6-14.6); RBC Distribution Width SD 41.6 fl (35.1-43.9); Red Blood Count 4.32 M/mm3 (4.2-5.4); White Blood Count 3.7 K/mm3 (4.4-11.0)
--- NOTE | 2021-05-21 07:13 | RAD_ITS ---
STUDY: X-RAY CHEST REASON FOR EXAM: Female, 30 years old. Cough TECHNIQUE: Portable, upright, AP chest radiograph COMPARISON: None. FINDINGS: The lungs are clear and expanded. There is no demonstrated pleural abnormality. Normal size heart. Normal mediastinum and brando. Normal visualized pulmonary arteries. Normal visualized aortic arch and descending thoracic aorta. There is no demonstrated abnormality of the visualized soft tissue structures of the upper abdomen. RAD/Chest 1 View (Portable) IMPRESSION: No acute abnormal cardiopulmonary finding. Electronically Signed: Yoel Hart MD at 7:30 EDT ,
[2021-05-21 07:22] LABS: AST(SGOT) 37 U/L (15-37); Alanine Aminotransfer ALT/SGPT 42 U/L (13-56); Albumin, Serum 3.1 g/dL (3.2-5.0); Alkaline Phosphatase 47 U/L (45-117); Anion Gap 4 (5-15); BUN 11 mg/dL (7-18); BUN/Creat Ratio 19.2 RATIO (10-20); Bilirubin, Direct 0.16 mg/dL (0.00-0.30); Calcium,Total 8.4 mg/dL (8.5-10.1); Chloride 109 mmol/L (98-107); Creatinine, Serum 0.57 mg/dL (0.55-1.02); EST Glomerular Filtration Rate 131 mL/min (>60); Est Glom Filt Rate - Afr Amer 158 mL/min (>60); Estimated Creatinine Clearance 129.86 ml/min; Globulin 3.2 g/dL (2.2-4.2); Glucose 84 mg/dL (74-106); Lipase 100 U/L (73-393); Potassium 3.6 mmol/L (3.5-5.1); Protein, Total 6.3 g/dL (6.4-8.2); Sodium Level 141 mmol/L (136-145)
[2021-05-21 07:28] LABS: Bacteria 0 SEEN /hpf (None Seen); Mucous, Urine 0 SEEN /hpf (<or=2+); Red Blood Cells-Urine 0 SEEN /hpf (0-5); Squamous Epithelial Cells - UA 0 SEEN /hpf (5-10); White Blood Cells 0 SEEN /hpf (0-5)
[2021-05-21 07:31] LABS: Color, Urine Yellow (Yellow); Glucose, Dipstick Normal (Normal); Ketone-Dipstick Negative (Negative); Leukocyte Esterase-Dipstick Negative /ul (Negative); Nitrite-Dipstick Negative (Negative); Occult Blood-Urine Negative /ul (Negative); Protein-Dipstick Negative (Negative); Urine Bilirubin Dipstick Negative (Negative); Urine Clarity Clear (Clear); Urine Urobilinogen Normal (Normal)
[2021-05-21] MEDS: HYDROmorphone 1 MG/ML Syringe IV (07:43)
--- NOTE | 2021-05-21 08:19 | EDS_ITS ---
HPI History of Present Illness Chief Complaint: Flank Pain Narrative Narrative: Patient is a 30-year-old female who was seen on May 19 secondary to right CVA pain. At that time she had a noncontrast CAT scan which revealed a stone in the left kidney but no acute pathology. Patient has been taking medication for muscle spasm but states that she feels the pain is worsened and secondary to this comes in for evaluation. She denies any trauma prior to the worsening of the pain she denies any hematuria or dysuria. She denies any loss of bowel or bladder control or IV drug use. PFSH PFS Medical History Hypothyroidism Home Medications levothyroxine 50 mcg PO DAILY 09/28/20 [History Last Taken Unknown] diazepam [Valium] 5 mg PO TID PRN 4 Days #10 tab 05/19/21 [Rx Last Taken Unknown] oxycodone-acetaminophen [Percocet] 1 tab PO Q6H PRN 3 Days #12 tab 05/21/21 [Rx Last Taken Unknown] Allergy/AdvReac Type Severity Reaction Status Date / Time shellfish derived Allergy PT UNSURE Verified 05/21/21 06:04 OF REACTION sertraline [From Zoloft] AdvReac PT UNSURE Verified 05/21/21 06:04 OF REACTION Social History Smoking Status: Current every day smoker tobacco type: cigarettes ROS ROS ED Constitutional Constitutional ED: Denies chills or fever(s) ENT ENT ED: Denies sore throat Cardiovascular Cardiovascular: Denies chest pain Respiratory/Chest Respiratory/Chest: Denies cough or dyspnea Gastrointestinal Gastrointestinal: Denies abdominal pain, diarrhea, nausea or vomiting Genitourinary Genitourinary ED: Denies dysuria or hematuria Musculoskeletal Musculoskeletal: Reports back pain; Denies myalgias Integumentary Denies rash Neurologic Neurologic: Denies headache(s) Hematologic/Lymphatic Hematologic/Lymphatic: Denies easy bleeding or easy bruising EXAM Physical Exam Const Vital Signs: 05/21/21 06:02 05/21/21 08:29 Temperature 97.2 F L Temperature Source Temporal Pulse Rate 62 62 Respiratory Rate 16 16 Blood Pressure 112/71 103/65 Blood Pressure Mean 84 Pulse Ox 100 95 Oxygen Delivery Method Room Air Positive well nourished and well developed General Appearance ED: well developed HEENT Reports moist mucous membranes Eyes PERRL and EOMs intact bilaterally Neck supple Resp normal respiratory effort and clear to auscultation bilaterally Cardio regular rate and regular rhythm Rate: other Other Details: Radial pulses are +2-4 bilaterally are equal and symmetric GI normal to inspection, nondistended, normoactive bowel sounds, non-tender, non- distended and no masses GI Narrative: No voluntary guarding or rigidity no pulsatile mass. No fluid wave. Negative Vega sign. No increased tympany noted Auscultation: normoactive bowel sounds Palpation: soft Back/Spine Back/Spine Narrative: No bony deformity or step-off of the thoracic or lumbar spine no midline pain with palpation. There is right CVA pain present with palpation and motion. There is no overlying soft tissue changes to suggest trauma or infection. Extremity normal to inspection Neuro oriented x3 and CN's II-XII intact bilaterally Sensorium / Orientation: alert Motor Exam: strength 5/5 throughout Psych mental status grossly normal Skin no rashes or lesions noted MDM MDM MDM Narrative Medical decision making narrative: Patient presented to the ER afebrile and normotensive with a soft nonsurgical abdomen. She had pain along the right flank but this worsened with palpation and motion. She was not coughing and lungs were clear and her abdomen is soft without any type of pain in the midepigastric or right upper quadrant region. There is concerned this could be atypical presentation for lung pathology even though she is not been coughing so a chest x-ray was ordered. I also like to perform a CT of the abdomen pelvis with IV contrast to check for underlying abdominal pathology such as a atypical presentation for pancreatitis or cholelithiasis as a cause. Blood work revealed no clinically significant findings and CT scan revealed no acute inflammatory or infectious process of the abdomen or pelvis. Therefore this time with negative work-up and stable vitals I do not feel there is need for further evaluation and patient will be discharged home. Lab Data Attestation: I reviewed the patient's lab results. Labs: Laboratory Results - last 24 hr 05/21/21 05/21/21 05/21/21 06:38 06:38 06:38 WBC 3.7 L RBC 4.32 Hgb 13.0 Hct 39.6 MCV 91.7 MCH 30.1 MCHC 32.8 RDW Std Deviation 41.6 RDW Coeff of Erika 12.3 Plt Count 164 MPV 10.9 Immature Gran % (Auto) 0.300 Neut % (Auto) 52.0 Lymph % (Auto) 34.6 [place] % (Auto) 9.1 Eos % (Auto) 3.2 Baso % (Auto) 0.8 Absolute Neuts (auto) 1.9 L Absolute Lymphs (auto) 1.29 Nucleated RBC % 0 Sodium 141 Potassium 3.6 Chloride 109 H Carbon Dioxide 28.0 Anion Gap 4 L BUN 11 Creatinine 0.57 Estim Creat Clear Calc 129.86 Est GFR (MDRD) Af Amer 158 Est GFR (MDRD) Non-Af 131 BUN/Creatinine Ratio 19.2 Glucose 84 Lactic Acid 1.0 Calcium 8.4 L Total Bilirubin 0.50 Direct Bilirubin 0.16 AST 37 ALT 42 Alkaline Phosphatase 47 Total Protein 6.3 L Albumin 3.1 L Globulin 3.2 Lipase 100 Urine Color Urine Clarity Urine pH Ur Specific [place] Urine Protein Urine Glucose (UA) Urine Ketones Urine Occult Blood Urine Nitrite Urine Bilirubin Urine Urobilinogen Ur Leukocyte Esterase Urine RBC Urine WBC Ur Squamous Epith Cells Urine Bacteria Urine Mucus 05/21/21 07:24 WBC RBC Hgb Hct MCV MCH MCHC RDW Std Deviation RDW Coeff of Erika Plt Count MPV Immature Gran % (Auto) Neut % (Auto) Lymph % (Auto) [place] % (Auto) Eos % (Auto) Baso % (Auto) Absolute Neuts (auto) Absolute Lymphs (auto) Nucleated RBC % Sodium Potassium Chloride Carbon Dioxide Anion Gap BUN Creatinine Estim Creat Clear Calc Est GFR (MDRD) Af Amer Est GFR (MDRD) Non-Af BUN/Creatinine Ratio Glucose Lactic Acid Calcium Total Bilirubin Direct Bilirubin AST ALT Alkaline Phosphatase Total Protein Albumin Globulin Lipase Urine Color Yellow Urine Clarity Clear Urine pH 6.0 Ur Specific [place] 1.020 Urine Protein Negative Urine Glucose (UA) Normal Urine Ketones Negative Urine Occult Blood Negative Urine Nitrite Negative Urine Bilirubin Negative Urine Urobilinogen Normal Ur Leukocyte Esterase Negative Urine RBC 0 SEEN Urine WBC 0 SEEN Ur Squamous Epith Cells 0 SEEN Urine Bacteria 0 SEEN Urine Mucus 0 SEEN Radiography Diagnostic Testing: Clinical Impression(s) from Imaging Studies Abdomen/Pelvis CT 05/21/21 06:25 IMPRESSION: Nonobstructing left renal collecting system calculus redemonstrated. No finding to suggest pyelonephritis. No acute abnormal finding in the abdomen or pelvis. Electronically Signed: Yoel Hart MD at 7:56 EDT , Chest X-Ray 05/21/21 07:13 IMPRESSION: No acute abnormal cardiopulmonary finding. Electronically Signed: Yoel Hart MD at 7:30 EDT , Chest x-ray as interpreted by the emergency medicine physician reveals no acute infiltrate pneumothorax or pleural effusion Discharge Plan Triage Chief Complaint: Flank Pain ED Provider: Clovis Mckeon Dx/Rx/DC Orders Clinical Impression: Acute flank pain, Back muscle spasm Instructions: Muscle Spasm Prescriptions: New oxycodone-acetaminophen [Percocet] 5-325 mg tablet 1 tab PO Q6H PRN (Reason: pain) 3 Days Qty: 12 RF: 0 No Action levothyroxine 50 mcg tablet 50 mcg PO DAILY RF: 0 diazepam [Valium] 5 mg tablet 5 mg PO TID PRN (Reason: muscle spasm) 4 Days Qty: 10 RF: 0 Primary Care Provider: Care Physician,No Primary Referrals: Clara Austin DO [STAFF PHYSICIAN] - 3-5 Days if not improving Care Physician,No Primary [Primary Care Provider] - Disposition Disposition: Home, Self Care Discharge Date/Time: 05/21/21 08:37
[2021-05-21 08:29] VITALS: BP 103/65; PULSE 62; RESP 16; O2SAT 95
== END 2021-05-21 08:37 | disposition home or self-care (01) ==
PROVIDERS: Emergency Provider Emergency Medicine; Visit Provider Emergency Medicine
DX: M62.830 Muscle spasm of back (principal); E03.9 Hypothyroidism, unspecified; F17.210 Nicotine dependence, cigarettes, uncomplicated; Z79.899 Other long term (current) drug therapy
CPT/HCPCS: 71045; 74177; 80048; 80076; 81001; 83605; 83690; 85025; 96361; 96374; 96375; 99283; J7030; Q9967; J2405

== ENCOUNTER 2021-08-14 14:53 | Emergency (ER) | payer MEDICAID, SELFPAY ==
[2021-08-14 14:54] VITALS: BP 105/73; PULSE 82; RESP 15; TEMP 36.6; O2SAT 100; BMI 27.1
--- NOTE | 2021-08-14 15:38 | EX.ED.DYSGE1 ---
HPI History of Present Illness Chief Complaint: Fever Narrative Narrative: 31-year-old female presenting with fever, chills, headache x3 days. She states that acutely started Thursday. 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 She states she has a distant history of migraines as a teenager. Just mild nausea. Light sensitivity as well. Patient has history of UTIs in the past but states she only had a last UTI about 2 weeks ago which does not have any urinary symptoms currently. She denies flank pain or suprapubic pain. She is not concerned for . PFSH PFSH Medical History Hypothyroidism Home Medications levothyroxine 50 mcg tablet 50 mcg PO DAILY 09/28/20 [History Last Taken Unknown] diazepam 5 mg tablet (Valium) 5 mg PO TID PRN muscle spasm 4 days #10 tabs 05/19/21 [Rx Last Taken Unknown] oxycodone-acetaminophen 5 mg-325 mg tablet (Percocet) 1 tab PO Q6H PRN pain 3 days #12 tabs 05/21/21 [Rx Last Taken Unknown] ondansetron 4 mg disintegrating tablet 4 mg PO Q8H PRN nausea and vomiting #14 tabs 08/14/21 [Rx Last Taken Unknown] Allergy/AdvReac Type Severity Reaction Status Date / Time shellfish derived Allergy PT UNSURE Verified 08/14/21 14:54 OF REACTION sertraline [From Zoloft] AdvReac PT UNSURE Verified 08/14/21 14:54 OF REACTION Social History Smoking Status: Current every day smoker tobacco type: cigarettes ROS ROS ED Constitutional Constitutional ED: Reports chills, fever(s) and subjective Eyes Eyes: Reports other Details: Photophobia ; Denies change in vision ENT ENT ED: Reports other Details: Phonophobia ; Denies rhinorrhea Cardiovascular Cardiovascular: Denies chest pain or palpitations Respiratory/Chest Respiratory/Chest: Denies cough, dyspnea or dyspnea on exertion Gastrointestinal Gastrointestinal: Reports nausea; Denies abdominal pain or diarrhea Genitourinary Genitourinary ED: Denies dysuria or hematuria Musculoskeletal Musculoskeletal: Reports myalgias; Denies arthralgias or back pain Integumentary Denies abscess or Abrasions Neurologic Neurologic: Reports headache(s); Denies paresthesias or weakness Psychiatric Psychiatric: Denies anxiety or depression EXAM Physical Exam Const Vital Signs: 08/14/21 14:54 08/14/21 15:28 Temperature 97.9 F Temperature Source Temporal Pulse Rate 82 Respiratory Rate 15 Respiratory Pattern Normal Blood Pressure 105/73 Blood Pressure Mean 83 Pulse Ox 100 Oxygen Delivery Method Room Air Positive well nourished General Appearance ED: NAD HEENT Reports moist mucous membranes Eyes PERRL and EOMs intact bilaterally Neck no lymphadenopathy Chest Wall inspection of chest normal and palpation of chest normal Resp normal respiratory effort and clear to auscultation bilaterally Cardio regular rate and regular rhythm GI normal to inspection, nondistended, normoactive bowel sounds Back/Spine no CVA tenderness Neuro oriented x3 and CN's II-XII intact bilaterally Sensorium / Orientation: alert Motor Exam: strength 5/5 throughout Psych mental status grossly normal Skin no rashes or lesions noted and no wounds MDM MDM MDM Narrative Medical decision making narrative: 31-year-old female presenting with fever, chills, body aches for 3 days. She has a history of UTIs however urinalysis negative. No shortness of breath or cough. Lungs clear on examination. Vital signs completely normal. Patient given IV fluids, Reglan, Benadryl, Toradol for her headache with her history of migraine. She feels much better on reevaluation. She did test positive for COVID today. Patient does not have significant medical problems and I do not believe she needs Paxil event. Patient will be given a prescription for Zofran for nausea. She is counseled to alternate Tylenol and ibuprofen for pain and fever. Patient given a work note. Return precautions discussed. Impression: 1. COVID-19 2. Nausea/vomiting 3. Headache Lab Data Attestation: I reviewed the patient's lab results. Labs: Laboratory Results - last 24 hr 08/14/21 16:00 Urine Color Yellow Urine Clarity Clear Urine pH 7.0 Ur Specific [place] 1.010 Urine Protein Negative Urine Glucose (UA) Normal Urine Ketones Negative Urine Occult Blood Negative Urine Nitrite Negative Urine Bilirubin Negative Urine Urobilinogen Normal Ur Leukocyte Esterase Negative Urine RBC 0 SEEN Urine WBC 0 SEEN Ur Squamous Epith Cells 0-5 SEEN Urine Bacteria 1+ Urine Mucus 0 SEEN Urine Test Negative Discharge Plan Triage Chief Complaint: Fever ED Provider: Alvin Mendez Dx/Rx/DC Orders Instructions: Coronavirus Disease 2019 (COVID-19): Caring for Yourself or Others, Understanding Headache Pain Prescriptions: New ondansetron 4 mg tablet,disintegrating 4 mg PO Q8H PRN (Reason: nausea and vomiting) Qty: 14 0RF No Action levothyroxine 50 mcg tablet 50 mcg PO DAILY Label Comments: take 1 tablet by mouth daily diazepam [Valium] 5 mg tablet 5 mg PO TID PRN (Reason: muscle spasm) 4 Days Qty: 10 0RF oxycodone-acetaminophen [Percocet] 5-325 mg tablet 1 tab PO Q6H PRN (Reason: pain) 3 Days Qty: 12 0RF Stand Alone Forms: ED Work / School Excuse Primary Care Provider: Care Physician,No Primary Referrals: Yoel Lopez MD [STAFF PHYSICIAN] - 3-5 Days Care Physician,No Primary [Primary Care Provider] - Disposition Disposition: Home, Self Care
[2021-08-14] MEDS: DiphenhydrAMINE 50 MG/ML Syringe IV (16:11)
[2021-08-14] MEDS: Metoclopramide 10 MG/2 ML Vial IV (16:11)
[2021-08-14] MEDS: Ketorolac 15 MG/ML Vial IV (16:12)
[2021-08-14 16:26] LABS: Mucous, Urine 0 SEEN /hpf (<or=2+); Red Blood Cells-Urine 0 SEEN /hpf (0-5); White Blood Cells 0 SEEN /hpf (0-5)
[2021-08-14 16:31] LABS: Color, Urine Yellow (Yellow); Glucose, Dipstick Normal (Normal); Ketone-Dipstick Negative (Negative); Leukocyte Esterase-Dipstick Negative /ul (Negative); Nitrite-Dipstick Negative (Negative); Occult Blood-Urine Negative /ul (Negative); Protein-Dipstick Negative (Negative); Urine Bilirubin Dipstick Negative (Negative); Urine Clarity Clear (Clear); Urine Urobilinogen Normal (Normal)
[2021-08-14 16:36] LABS: Internal QC Validated? YES +Cl - CLEAR BKGD
[2021-08-14 16:37] LABS: Pregnancy, Urine Negative Negative
[2021-08-14 16:44] LABS: Bacteria 1+ /hpf (None Seen); Squamous Epithelial Cells - UA 0-5 SEEN /hpf (5-10)
== END 2021-08-14 17:49 | disposition home or self-care (01) ==
PROVIDERS: Emergency Provider Student in an Organized Health Care Education/Training Program; Visit Provider Student in an Organized Health Care Education/Training Program
DX: U07.1 COVID-19 (principal); E03.9 Hypothyroidism, unspecified; F17.210 Nicotine dependence, cigarettes, uncomplicated; Z79.899 Other long term (current) drug therapy
CPT/HCPCS: 81001; 81025; 87811; 96361; 96374; 96375; 99283

== ENCOUNTER 2022-04-30 12:22 | Emergency (ER) | payer BC, MEDICAID, SELFPAY ==
[2022-04-30 12:23] VITALS: BP 112/48; PULSE 73; RESP 18; TEMP 36.6; O2SAT 100
--- NOTE | 2022-04-30 12:46 | EX.ED.DYSGE1 ---
HPI History of Present Illness Chief Complaint: Abd Pain Informant: patient Onset/Context/Timing Onset: Today Current Severity: Severe Maximum Severity: Severe Narrative Narrative: Patient present secondary to abrupt onset of right mid upper abdominal pain that started a couple hours ago. She had not recently eaten but tried to eat after the pain onset but this did not improve her symptoms. She has had no vomiting or diarrhea. She does have history of kidney stone but does not remember if this pain feels similar. She went to a local urgent care where she was given 30 mg of IM Toradol and 4 mg of Zofran ODT and sent to the ER for further evaluation. [facility] Medical History Hypothyroidism Kidney stone Home Medications levothyroxine 50 mcg tablet 50 mcg PO DAILY 09/28/20 [History Last Taken Unknown] diazepam 5 mg tablet (Valium) 5 mg PO TID PRN muscle spasm 4 days #10 tabs 05/19/21 [Rx Last Taken Unknown] oxycodone-acetaminophen 5 mg-325 mg tablet (Percocet) 1 tab PO Q6H PRN pain 3 days #12 tabs 05/21/21 [Rx Last Taken Unknown] ondansetron 4 mg disintegrating tablet 4 mg PO Q8H PRN nausea and vomiting #14 tabs 08/14/21 [Rx Last Taken Unknown] tramadol 50 mg tablet 50 mg PO Q4H PRN PRN Pain #10 tabs 04/30/22 [Rx Last Taken Unknown] Allergy/AdvReac Type Severity Reaction Status Date / Time shellfish derived Allergy PT UNSURE Verified 04/30/22 12:24 OF REACTION sertraline [From Zoloft] AdvReac PT UNSURE Verified 04/30/22 12:24 OF REACTION Social History Smoking Status: Current every day smoker tobacco type: cigarettes ROS ROS ED Constitutional Constitutional ED: Denies chills or fever(s) Eyes Eyes: Denies change in vision or discharge from eye(s) ENT ENT ED: Denies discharge from eye(s), rhinorrhea or sore throat Cardiovascular Cardiovascular: Denies chest pain or palpitations Respiratory/Chest Respiratory/Chest: Denies cough or dyspnea Gastrointestinal Gastrointestinal: Reports abdominal pain and nausea; Denies diarrhea or vomiting Genitourinary Genitourinary ED: Denies difficulty urinating or dysuria Musculoskeletal Musculoskeletal: Denies back pain or extremity pain Integumentary Denies Abrasions or rash Neurologic Neurologic: Denies headache(s) or weakness Psychiatric Psychiatric: Denies anxiety or depression Endocrine Endocrinology: Denies polydipsia or polyuria Allergic/Immunologic Allergic/Immunologic ED: Denies lip swelling or urticaria EXAM Physical Exam Const Vital Signs: 04/30/22 12:23 04/30/22 15:16 04/30/22 15:16 Temperature 98 F 98 F Temperature Source Temporal Temporal Pulse Rate 73 60 90 Respiratory Rate 18 16 16 Blood Pressure 112/48 L 92/63 Blood Pressure Mean 69 72 Pulse Ox 100 99 100 Oxygen Delivery Method Room Air Room Air Room Air Positive well nourished and well developed General Appearance ED: well developed HEENT Reports normocephalic and head/scalp atraumatic Eyes PERRL and EOMs intact bilaterally Neck supple Chest Wall inspection of chest normal and palpation of chest normal Resp normal respiratory effort and clear to auscultation bilaterally Cardio regular rate and regular rhythm GI GI Narrative: Right mid and upper quadrant tenderness to palpation. No guarding or rebound. No palpable masses. Palpation: soft Back/Spine no CVA tenderness Extremity normal to inspection Neuro oriented x3 and no sensory deficits noted Sensorium / Orientation: alert Motor Exam: strength 5/5 throughout Psych Mood & Affect: anxious and tearful Skin no rashes or lesions noted MDM MDM MDM Narrative Medical decision making narrative: Patient is initially given morphine and Zofran along with IV fluids. She had been given Toradol at the urgent care. Labwork obtained to evaluate for leukocytosis, anemia, and electrolyte derangement. Urinalysis obtained to evaluate for infection/hematuria. Lab Data Attestation: I reviewed the patient's lab results. Labs: Laboratory Results - last 24 hr 04/30/22 04/30/22 04/30/22 12:48 12:48 12:48 WBC 8.3 RBC 4.64 Hgb 14.3 Hct 41.7 MCV 89.9 MCH 30.8 MCHC 34.3 RDW Std Deviation 40.7 RDW Coeff of Erika 12.4 Plt Count 259 MPV 10.0 Immature Gran % (Auto) 0.200 Neut % (Auto) 61.8 Lymph % (Auto) 28.9 [place] % (Auto) 7.1 Eos % (Auto) 1.4 Baso % (Auto) 0.6 Absolute Neuts (auto) 5.1 Absolute Lymphs (auto) 2.39 Nucleated RBC % 0 Sodium 139 Potassium 3.7 Chloride 107 Carbon Dioxide 23.0 Anion Gap 9 BUN 14 Creatinine 0.72 Est GFR (MDRD) Af Amer 120 Est GFR (MDRD) Non-Af 99 BUN/Creatinine Ratio 19.3 Glucose 90 Calcium 9.2 Total Bilirubin 3.20 H Direct Bilirubin 0.38 H AST 18 ALT 20 Alkaline Phosphatase 46 Total Protein 7.9 Albumin 4.3 Globulin 3.6 Lipase 87 Serum , Qual NEGATIVE Urine Color Urine Clarity Urine pH Ur Specific [place] Urine Protein Urine Glucose (UA) Urine Ketones Urine Occult Blood Urine Nitrite Urine Bilirubin Urine Urobilinogen Ur Leukocyte Esterase Urine RBC Urine WBC Ur Squamous Epith Cells Urine Bacteria Urine Mucus 04/30/22 13:40 WBC RBC Hgb Hct MCV MCH MCHC RDW Std Deviation RDW Coeff of Erika Plt Count MPV Immature Gran % (Auto) Neut % (Auto) Lymph % (Auto) [place] % (Auto) Eos % (Auto) Baso % (Auto) Absolute Neuts (auto) Absolute Lymphs (auto) Nucleated RBC % Sodium Potassium Chloride Carbon Dioxide Anion Gap BUN Creatinine Est GFR (MDRD) Af Amer Est GFR (MDRD) Non-Af BUN/Creatinine Ratio Glucose Calcium Total Bilirubin Direct Bilirubin AST ALT Alkaline Phosphatase Total Protein Albumin Globulin Lipase Serum , Qual Urine Color Yellow Urine Clarity Clear Urine pH 7.0 Ur Specific [place] 1.010 Urine Protein 15 H Urine Glucose (UA) Normal Urine Ketones 5 H Urine Occult Blood Negative Urine Nitrite Negative Urine Bilirubin Negative Urine Urobilinogen Normal Ur Leukocyte Esterase Negative Urine RBC 0 SEEN Urine WBC 0 SEEN Ur Squamous Epith Cells 0-5 SEEN Urine Bacteria 0 SEEN Urine Mucus 0 SEEN Radiography Diagnostic Testing: Clinical Impression(s) from Imaging Studies Abdomen/Pelvis CT 04/30/22 13:15 IMPRESSION: 1. Negative CT of the abdomen and pelvis for an acute process. 2. No demonstrated hydronephrosis or renal masses or radiopaque stones. There is no visualized hydroureter or radiopaque stones within the ureter or bladder lumen or at the UVJ. Electronically Signed: Lazarus Morrissey MD at 14:36 EDT Reading Location ID and State: [facility] / [place] , Service support , Gallbladder Ultrasound 04/30/22 15:08 IMPRESSION: No suspicious sonographic findings Electronically Signed: Landry Henao MD at 15:58 EDT , Treatment and Re-Evaluation :: Lab work is remarkable only for slightly elevated bilirubin levels with a total bili of 3.2 and direct bili of 0.38. All other values are normal. test is negative. Urinalysis is clean. Due to continued pain she did receive a small dose of Dilaudid. CT flank is obtained. This is read with no acute findings. I reviewed the images myself and do not see any evidence of kidney stone as they were worried she had previously had a left-sided stone. Given her elevated bilirubin levels right upper quadrant ultrasound was obtained. This reveals normal gallbladder and ducts. No acute abnormalities noted. Test results are discussed with the patient and family at bedside. I will write her for some tramadol for breakthrough pain. I will refer her to Dr. Kennedy, next on the no doc list for follow-up. Return instructions been provided. Discharge Plan Triage Chief Complaint: Abd Pain ED Provider: Breonna Hart Dx/Rx/DC Orders Clinical Impression: Abdominal pain Instructions: ED Abdominal Pain Unkn Cause Fem Prescriptions: New tramadol 50 mg tablet 50 mg PO Q4H PRN PRN (Reason: Pain) Qty: 10 0RF No Action levothyroxine 50 mcg tablet 50 mcg PO DAILY Label Comments: take 1 tablet by mouth daily diazepam [Valium] 5 mg tablet 5 mg PO TID PRN (Reason: muscle spasm) 4 Days Qty: 10 0RF oxycodone-acetaminophen [Percocet] 5-325 mg tablet 1 tab PO Q6H PRN (Reason: pain) 3 Days Qty: 12 0RF ondansetron 4 mg tablet,disintegrating 4 mg PO Q8H PRN (Reason: nausea and vomiting) Qty: 14 0RF Stand Alone Forms: ED Work / School Excuse, Work Status Form, [employer] Primary Care Provider: Care Physician,No Primary Referrals: Yesenia Kennedy MD [Med Staff - Senior Bookkeeper] - 1-2 Weeks Care Physician,No Primary [Primary Care Provider] - Disposition Disposition: Home, Self Care
[2022-04-30 12:54] LABS: Absolute Lymphocyte Count 2.39 X10^3/uL (0.83-4.51); Absolute Neutrophil Count 5.1 X10^3/uL (2.0-7.7); Basophil# 0.05 X10^3/uL; Basophil% 0.6 % (0-1); Eosinophil# 0.12 X10^3/uL; Eosinophils% 1.4 % (0-5); Hematocrit 41.7 % (37-47); Hemoglobin 14.3 g/dL (12.0-15.0); Lymphocyte # 2.39 X10^3/ul (0.83-4.51); Lymphocyte % 28.9 % (19-41); Mean Corp Hgb Conc 34.3 g/dL (32-36); Mean Corpuscular Hgb 30.8 pg (27.0-32.0); Mean Corpuscular Volume 89.9 fL (81-99); Monocyte# 0.59 X10^3/uL; Monocyte% 7.1 % (0-10); NRBC Flagged by Analyzer 0 % (0-5); Neutrophil # 5.11 X10^3/uL (2.7-7.7); Neutrophil % 61.8 % (47-70); Platelet Count 259 K/mm3 (150-450); RBC Distribution Width CV 12.4 % (11.6-14.6); RBC Distribution Width SD 40.7 fl (35.1-43.9); Red Blood Count 4.64 M/mm3 (4.2-5.4); White Blood Count 8.3 K/mm3 (4.4-11.0)
[2022-04-30] MEDS: Morphine 4 MG/ML Syringe IV (12:55)
[2022-04-30] MEDS: Ondansetron 4 MG/2 ML Vial IV (12:56)
[2022-04-30] MEDS: 0.9% Normal Saline 1,000 ML 150 ML IV (12:59)
[2022-04-30 13:09] LABS: AST(SGOT) 18 U/L (15-37); Alanine Aminotransfer ALT/SGPT 20 U/L (13-56); Albumin, Serum 4.3 g/dL (3.2-5.0); Alkaline Phosphatase 46 U/L (45-117); Anion Gap 9 (5-15); BUN 14 mg/dL (7-18); BUN/Creat Ratio 19.3 RATIO (10-20); Bilirubin, Direct 0.38 mg/dL (0.00-0.30); Calcium,Total 9.2 mg/dL (8.5-10.1); Chloride 107 mmol/L (98-107); Creatinine, Serum 0.72 mg/dL (0.55-1.02); EST Glomerular Filtration Rate 99 mL/min (>60); Est Glom Filt Rate - Afr Amer 120 mL/min (>60); Globulin 3.6 g/dL (2.2-4.2); Glucose 90 mg/dL (74-106); Lipase 87 U/L (73-393); Potassium 3.7 mmol/L (3.5-5.1); Protein, Total 7.9 g/dL (6.4-8.2); Sodium Level 139 mmol/L (136-145)
--- NOTE | 2022-04-30 13:15 | CT_ITS ---
STUDY: CT ABDOMEN AND PELVIS WITHOUT CONTRAST REASON FOR EXAM: Female, 31 years old. Right side abdominal pain RADIATION DOSAGE (If Supplied By Facility): CTDIvol = ( 7.05 ) mGy, DLP = ( 337.63 ) mGycm TECHNIQUE: Transaxial images were obtained from the dome of the diaphragm to the symphysis pubis without oral contrast, and without intravenous contrast. Sagittal and coronal images were reconstructed. Individualized dose optimization techniques were used for this CT. COMPARISON: CT of abdomen and pelvis dated May 21, 2021 FINDINGS: The visualized lung bases are unremarkable. The visualized portions of the heart are within normal limits. Normal liver. Normal gallbladder and extrahepatic biliary system. Normal spleen. Normal pancreas. Normal bilateral adrenal glands. Normal right kidney. Normal left kidney. No demonstrated hydronephrosis or renal masses or radiopaque stones. There is no visualized hydroureter or radiopaque stones within the ureter or bladder lumen or at the UVJ. Normal visualized stomach. Normal small intestine. Normal colon. The appendix is visualized and appears normal. No free air or free fluid or bowel dilatation is seen. There is no evidence of bowel obstruction. Normal abdominal aorta. Normal inferior vena cava. Normal retroperitoneum. Normal urinary bladder. Unremarkable uterus and adnexa. Normal abdominal wall. Normal osseous structures. CT/Abdomen/Pelvis without Cont IMPRESSION: 1. Negative CT of the abdomen and pelvis for an acute process. 2. No demonstrated hydronephrosis or renal masses or radiopaque stones. There is no visualized hydroureter or radiopaque stones within the ureter or bladder lumen or at the UVJ. Electronically Signed: Lazarus Morrissey MD at 14:36 EDT ,
[2022-04-30 13:29] LABS: Internal QC Validated? YES +Cl - CLEAR BKGD; Pregnancy, Serum, hCG Quali. NEGATIVE Negative
[2022-04-30] MEDS: HYDROmorphone 0.5 MG/0.5 ML SYRINGE IV (13:42)
[2022-04-30 13:44] LABS: Bacteria 0 SEEN /hpf (None Seen); Mucous, Urine 0 SEEN /hpf (<or=2+); Red Blood Cells-Urine 0 SEEN /hpf (0-5); White Blood Cells 0 SEEN /hpf (0-5)
[2022-04-30 13:46] LABS: Color, Urine Yellow (Yellow); Glucose, Dipstick Normal (Normal); Ketone-Dipstick 5 mg/dl (Negative); Leukocyte Esterase-Dipstick Negative /ul (Negative); Nitrite-Dipstick Negative (Negative); Occult Blood-Urine Negative /ul (Negative); Protein-Dipstick 15 mg/dl (Negative); Urine Bilirubin Dipstick Negative (Negative); Urine Clarity Clear (Clear); Urine Urobilinogen Normal (Normal)
[2022-04-30 13:56] LABS: Squamous Epithelial Cells - UA 0-5 SEEN /hpf (5-10)
--- NOTE | 2022-04-30 15:08 | US_ITS ---
STUDY: ABDOMINAL ULTRASOUND - RIGHT UPPER QUADRANT REASON FOR VISIT: Female, 31 years old RUQ pain TECHNIQUE: Ultrasound evaluation of the right upper quadrant was performed with real-time and static bland-scale imaging. TECHNICAL QUALITY: Adequate. COMPARISON: CT from 04/30/2022 FINDINGS: Liver: The liver measures 14 cm. There is normal echogenicity of the liver. The bile ducts are within normal limits. There is hepatic color flow. The direction of portal flow is hepatopetal. There is no demonstrated mass lesion. Gallbladder: Normal distended gallbladder. The gallbladder wall measures 1.4 mm. There is a negative sonographic Vega''s sign. There is no pericholecystic fluid. There are no gallstones. Common Bile Duct (C.B.D.): The common bile duct measures 3 mm. Pancreas: Normal size of the head, body and tail of the pancreas. There is normal echogenicity of the pancreas. There is no demonstrated pancreatic mass or cyst. Right Kidney: Normal size of the right kidney. The right kidney measures 12.1 x 4.9 x 4.5 cm. Normal renal cortex. The right cortex measures 1.5 cm. There is no demonstrated renal mass or cyst. There is no right hydronephrosis. US/Gallbladder IMPRESSION: No suspicious sonographic findings Electronically Signed: Landry Henao MD at 15:58 EDT ,
[2022-04-30 15:16] VITALS: BP 92/63; PULSE 60; PULSE 90; RESP 16; TEMP 36.6; O2SAT 100; O2SAT 99; BMI 27.3
[2022-04-30] MEDS: fentaNYL 100 MCG/2 ML Ampul 25 MCG IV (16:22)
[2022-04-30 16:52] VITALS: BP 108/62
== END 2022-04-30 16:54 | disposition home or self-care (01) ==
PROVIDERS: Emergency Provider Emergency Medicine; Visit Provider Emergency Medicine
DX: R10.9 Unspecified abdominal pain (principal); F17.210 Nicotine dependence, cigarettes, uncomplicated
CPT/HCPCS: 74176; 76705; 80048; 80076; 81001; 83690; 84703; 85025; 96361; 96374; 96375; 99283; J7030; A4216; J2405

== ENCOUNTER 2022-05-02 10:48 | Emergency (ER) | payer BC, MEDICAID, SELFPAY ==
[2022-05-02 10:49] VITALS: BP 112/57; PULSE 85; RESP 14; TEMP 36.6; O2SAT 100; BMI 27.6
--- NOTE | 2022-05-02 11:44 | EX.ED.VIS.HA ---
HPI History of Present Illness Chief Complaint: Headache Informant: patient Onset/Context/Timing Onset: Yesterday Context: Sudden Timing: Continuous Quality -Headache: Positive for Sharp and Dull Location: Generalized Worsened by: Light Relieved by: Darkness Associated Symptoms/Injury Associated Symptoms: Positive for Nausea and Photophobia; Negative for Fever, Vomiting, Sore Throat, Sinus Pressure, Numbness, Tingling, Preceding Aura, Visual Changes, Blurred Vision or Visual Loss Narrative Narrative: Patient presents with a headache and abdominal pain that began yesterday. Patient states her headache is generalized. Patient describes it as sharp and dull. Patient states it is worse with light and better with darkness. Patient admits to nausea but denies any vomiting. Patient states she has had migraine headaches in the past but this is worse. Patient denies any visual changes or scotoma. Patient denies any paresthesias or weakness. Patient denies any hematemesis or coffee-ground emesis. Patient denies any diarrhea, melena, or hematochezia. Patient states her abdominal pain is mainly on the right side of her abdomen. Patient denies any urinary complaints. [facility] Medical History (Updated 05/02/22 @ 16:[address] Cristian Hernandez, ) Hypothyroidism Kidney stone Home Medications levothyroxine 50 mcg tablet 50 mcg PO DAILY 09/28/20 [History Last Taken Unknown] diazepam 5 mg tablet (Valium) 5 mg PO TID PRN muscle spasm 4 days #10 tabs 05/19/21 [Rx Last Taken Unknown] oxycodone-acetaminophen 5 mg-325 mg tablet (Percocet) 1 tab PO Q6H PRN pain 3 days #12 tabs 05/21/21 [Rx Last Taken Unknown] ondansetron 4 mg disintegrating tablet 4 mg PO Q8H PRN nausea and vomiting #14 tabs 08/14/21 [Rx Last Taken Unknown] tramadol 50 mg tablet 50 mg PO Q4H PRN PRN Pain #10 tabs 04/30/22 [Rx Last Taken Unknown] Allergy/AdvReac Type Severity Reaction Status Date / Time shellfish derived Allergy PT UNSURE Verified 05/02/22 10:49 OF REACTION sertraline [From Zoloft] AdvReac PT UNSURE Verified 05/02/22 10:49 OF REACTION Surgical History Hx of tubal ligation Social History Smoking Status: Current every day smoker tobacco type: cigarettes ROS ROS ED Constitutional Constitutional ED: Denies chills or fever(s) Eyes Eyes: Denies blurry vision or change in vision ENT ENT ED: Denies rhinorrhea or sore throat Cardiovascular Cardiovascular: Denies chest pain or palpitations Respiratory/Chest Respiratory/Chest: Denies cough or dyspnea Gastrointestinal Gastrointestinal: Reports abdominal pain and nausea; Denies vomiting Genitourinary Genitourinary ED: Denies dysuria or hematuria Musculoskeletal Musculoskeletal: Denies back pain or neck pain Integumentary Denies abscess or rash Neurologic Neurologic: Reports headache(s); Denies weakness Allergic/Immunologic Allergic/Immunologic ED: Denies mouth swelling or urticaria EXAM Physical Exam Const Vital Signs: 05/02/22 10:49 05/02/22 12:28 05/02/22 14:00 Temperature 98 F Temperature Source Temporal Pulse Rate 85 Respiratory Rate 14 14 Blood Pressure 112/57 L 106/68 Blood Pressure Mean 75 80 Pulse Ox 100 100 Oxygen Delivery Method Room Air Room Air Positive well nourished and well developed General Appearance ED: well developed HEENT Reports moist mucous membranes Neck supple and no JVD Resp normal respiratory effort and clear to auscultation bilaterally Cardio regular rate, regular rhythm and no murmurs GI normal to inspection, nondistended, normoactive bowel sounds Palpation: soft and tender RLQ and RUQ; Negative for guarding Extremity normal to inspection General Extremety ED: Negative for edema or tenderness General Extremity: Negative for edema Neuro oriented x3, CN's II-XII intact bilaterally and no sensory deficits noted Sensorium / Orientation: alert Motor Exam: strength 5/5 throughout Psych mental status grossly normal Skin no rashes or lesions noted MDM MDM MDM Narrative Medical decision making narrative: Differential diagnosis includes migraine headache, intracranial bleeding, tension headache, viral illness, renal calculus, ureteral calculus, appendicitis, gastroenteritis, pyelonephritis, and urinary tract infection. CT scan of the brain will be obtained to assess for intracranial bleeding. CT scan of the abdomen pelvis will be obtained to assess for ureteral calculus, pyelonephritis, and gastroenteritis. CBC will be obtained to assess for leukocytosis and anemia. Basic metabolic profile will be obtained to assess for electrolyte abnormality and renal function. Urinalysis will be obtained to assess for urinary tract infection and hematuria. Lab Data Attestation: I reviewed the patient's lab results. Lab results narrative: CBC was reviewed and was within normal limits. Basic metabolic profile was reviewed and was within normal limits. Serum hCG was reviewed and was negative. Urinalysis was reviewed. There is no evidence of urinary tract infection or hematuria. Labs: Laboratory Results - last 24 hr 05/02/22 05/02/22 05/02/22 12:15 12:15 12:15 WBC 5.5 RBC 4.05 L Hgb 12.4 Hct 37.9 MCV 93.6 MCH 30.6 MCHC 32.7 RDW Std Deviation 43.0 RDW Coeff of Erika 12.4 Plt Count 207 MPV 10.3 Immature Gran % (Auto) 0.400 Neut % (Auto) 55.3 Lymph % (Auto) 33.0 Becker % (Auto) 7.3 Eos % (Auto) 3.3 Baso % (Auto) 0.7 Absolute Neuts (auto) 3.0 Absolute Lymphs (auto) 1.81 Nucleated RBC % 0 Sodium 142 Potassium 4.0 Chloride 109 H Carbon Dioxide 31.0 Anion Gap 2 L BUN 8 Creatinine 0.51 L Estim Creat Clear Calc 143.82 Est GFR (MDRD) Af Amer 180 Est GFR (MDRD) Non-Af 148 BUN/Creatinine Ratio 15.7 Glucose 89 Calcium 8.5 Serum , Qual NEGATIVE Urine Color Urine Clarity Urine pH Ur Specific [place] Urine Protein Urine Glucose (UA) Urine Ketones Urine Occult Blood Urine Nitrite Urine Bilirubin Urine Urobilinogen Ur Leukocyte Esterase Urine RBC Urine WBC Ur Squamous Epith Cells Urine Bacteria Urine Mucus 05/02/22 12:20 WBC RBC Hgb Hct MCV MCH MCHC RDW Std Deviation RDW Coeff of Erika Plt Count MPV Immature Gran % (Auto) Neut % (Auto) Lymph % (Auto) Becker % (Auto) Eos % (Auto) Baso % (Auto) Absolute Neuts (auto) Absolute Lymphs (auto) Nucleated RBC % Sodium Potassium Chloride Carbon Dioxide Anion Gap BUN Creatinine Estim Creat Clear Calc Est GFR (MDRD) Af Amer Est GFR (MDRD) Non-Af BUN/Creatinine Ratio Glucose Calcium Serum , Qual Urine Color Yellow Urine Clarity Sl. Cloudy Urine pH 7.0 Ur Specific [place] 1.010 Urine Protein Negative Urine Glucose (UA) Normal Urine Ketones Negative Urine Occult Blood Negative Urine Nitrite Negative Urine Bilirubin Negative Urine Urobilinogen Normal Ur Leukocyte Esterase Negative Urine RBC 0 SEEN Urine WBC 0 SEEN Ur Squamous Epith Cells 0-5 SEEN Urine Bacteria 1+ Urine Mucus 0 SEEN Radiography Diagnostic Testing: Clinical Impression(s) from Imaging Studies Abdomen/Pelvis CT 05/02/22 11:49 IMPRESSION: 1. No acute abdominal or pelvic abnormality. 2. Normal appendix. 3. No evidence of urinary tract stone disease. Electronically Signed: Joseph Escobar MD at 14:20 EDT , Brain CT 05/02/22 11:49 IMPRESSION: No acute intracranial abnormality. Electronically Signed: Joseph Escobar MD at 14:21 EDT , CT scan of the brain was obtained. There is no acute intracranial abnormality. This was interpreted by the radiologist and was also independently reviewed by myself. CT scan of the abdomen pelvis was obtained. There is no acute abnormality noted. The appendix was normal. There is no evidence of ureteral calculus or hydronephrosis. This was interpreted by the radiologist and was also independently reviewed by myself. Treatment and Re-Evaluation Narrative: Patient was given IV fluids, Reglan, and Benadryl. Patient had minimal improvement with this. Patient was given a dose of Toradol and a dose of Imitrex. Patient was feeling better after this. Patient was instructed to rest in a dark quiet room. Patient was instructed to drink plenty of fluids. Patient was instructed to follow-up with her primary care physician in 5 to 7 days. Patient understood and was agreeable with the plan. All questions were answered. Discharge Plan Triage Chief Complaint: Headache ED Provider: Cristian Hernandez Dx/Rx/DC Orders Clinical Impression: Headache, Abdominal pain, Nausea and vomiting Instructions: ED Headache Unspecified, ED Vomiting (Adult) Prescriptions: No Action levothyroxine 50 mcg tablet 50 mcg PO DAILY Label Comments: take 1 tablet by mouth daily diazepam [Valium] 5 mg tablet 5 mg PO TID PRN (Reason: muscle spasm) 4 Days Qty: 10 0RF oxycodone-acetaminophen [Percocet] 5-325 mg tablet 1 tab PO Q6H PRN (Reason: pain) 3 Days Qty: 12 0RF ondansetron 4 mg tablet,disintegrating 4 mg PO Q8H PRN (Reason: nausea and vomiting) Qty: 14 0RF tramadol 50 mg tablet 50 mg PO Q4H PRN PRN (Reason: Pain) Qty: 10 0RF Primary Care Provider: Care Physician,No Primary Referrals: Yesenia Kennedy MD [Med Staff - Integration Software Engineer] - 5-7 Days Care Physician,No Primary [Primary Care Provider] - Disposition Disposition: Home, Self Care
--- NOTE | 2022-05-02 11:49 | CT_ITS ---
EXAM: CT HEAD WITHOUT INTRAVENOUS CONTRAST CLINICAL INDICATION: Pain TECHNIQUE: Multiple axial images were obtained of the head without intravenous contrast. This CT exam was performed using one or more of the following dose reduction techniques: automated exposure control, adjustment of the mA and/or kV according to patient size, and/or use of iterative reconstruction technique. This report was created using [employer] report generation technology. COMPARISON: None. FINDINGS: BRAIN AND EXTRA-AXIAL SPACES: Normal. No intra- or extra-axial hemorrhage. No evidence of acute infarct. No intracranial mass or mass effect. There is preservation of the bland/white matter interface. Posterior fossa structures are unremarkable. Ventricles are appropriate for age. No hydrocephalus. Basal cisterns are patent. BONES/JOINTS: No suspicious lytic or blastic abnormality. SINUSES: Focal left ethmoid air cell opacification. MASTOID AIR CELLS: Normal. Clear. ORBITS: Visualized globes, extraocular muscles, optic nerves and retrobulbar fat appear unremarkable. CT/Brain/Head without Contrast IMPRESSION: No acute intracranial abnormality. Electronically Signed: Joseph Escobar MD at 14:21 EDT ,
--- NOTE | 2022-05-02 11:49 | CT_ITS ---
EXAM: CT ABDOMEN AND PELVIS WITHOUT INTRAVENOUS CONTRAST CLINICAL INDICATION: Right abdominal pain TECHNIQUE: Helically acquired images were obtained of the abdomen and pelvis without intravenous contrast. This CT exam was performed using one or more of the following dose reduction techniques: automated exposure control, adjustment of the mA and/or kV according to patient size, and/or use of iterative reconstruction technique. This report was created using [employer] report generation technology. COMPARISON: None. FINDINGS: LOWER THORAX: Normal. Lung bases are clear. No cardiomegaly. No pericardial effusion. ABDOMEN: LIVER: Normal. Homogeneous. GALLBLADDER AND BILE DUCTS: Normal. No calcified gallstones. No gallbladder distention or wall edema. No intra- or extrahepatic biliary ductal dilation. PANCREAS: Normal. No focal cystic mass. SPLEEN: Normal. Normal size without focal cystic or solid mass. ADRENALS: Normal. No nodules. KIDNEYS AND URETERS: Normal. No evidence of urinary tract stone disease. STOMACH AND BOWEL: Normal. No bowel distention. No focal inflammatory change. PELVIS: APPENDIX: Appendix is visualized and normal in appearance. BLADDER: Normal. REPRODUCTIVE: Uterus is prominent in size measuring 13.5 cm in length. 16mm left ovarian follicular cyst. No adnexal mass. ABDOMEN and PELVIS: INTRAPERITONEAL SPACE: Physiological amount of free fluid noted within the pelvis. No free air. BONES/JOINTS: No suspicious lytic or blastic abnormality. SOFT TISSUES: Normal. No discrete abdominal or pelvic wall hernia. VASCULATURE: Normal. Abdominal aorta is non-dilated. LYMPH NODES: Normal. No enlarged lymph nodes. CT/Abdomen/Pelvis without Cont IMPRESSION: 1. No acute abdominal or pelvic abnormality. 2. Normal appendix. 3. No evidence of urinary tract stone disease. Electronically Signed: Joseph Escobar MD at 14:20 EDT ,
[2022-05-02] MEDS: 0.9% Normal Saline 1,000 ML 999 ML IV (12:09)
[2022-05-02] MEDS: DiphenhydrAMINE 50 MG/ML Syringe 25 MG IV (12:09)
[2022-05-02] MEDS: Metoclopramide 10 MG/2 ML Vial IV (12:09)
[2022-05-02 12:28] VITALS: BP 106/68; O2SAT 100
[2022-05-02 12:28] LABS: Mucous, Urine 0 SEEN /hpf (<or=2+); Red Blood Cells-Urine 0 SEEN /hpf (0-5); White Blood Cells 0 SEEN /hpf (0-5)
[2022-05-02 12:32] LABS: Absolute Lymphocyte Count 1.81 X10^3/uL (0.83-4.51); Basophil# 0.04 X10^3/uL; Basophil% 0.7 % (0-1); Eosinophil# 0.18 X10^3/uL; Eosinophils% 3.3 % (0-5); Hematocrit 37.9 % (37-47); Hemoglobin 12.4 g/dL (12.0-15.0); Lymphocyte # 1.81 X10^3/ul (0.83-4.51); Mean Corp Hgb Conc 32.7 g/dL (32-36); Mean Corpuscular Hgb 30.6 pg (27.0-32.0); Mean Corpuscular Volume 93.6 fL (81-99); Mean Platelet Vol. 10.3 fl (6.2-12.0); Monocyte% 7.3 % (0-10); NRBC Flagged by Analyzer 0 % (0-5); Neutrophil # 3.03 X10^3/uL (2.7-7.7); Neutrophil % 55.3 % (47-70); Platelet Count 207 K/mm3 (150-450); RBC Distribution Width CV 12.4 % (11.6-14.6); Red Blood Count 4.05 M/mm3 (4.2-5.4); White Blood Count 5.5 K/mm3 (4.4-11.0)
[2022-05-02 12:33] LABS: Color, Urine Yellow (Yellow); Glucose, Dipstick Normal (Normal); Ketone-Dipstick Negative (Negative); Leukocyte Esterase-Dipstick Negative /ul (Negative); Nitrite-Dipstick Negative (Negative); Occult Blood-Urine Negative /ul (Negative); Protein-Dipstick Negative (Negative); Urine Bilirubin Dipstick Negative (Negative); Urine Clarity Sl. Cloudy (Clear); Urine Urobilinogen Normal (Normal)
[2022-05-02 12:40] LABS: Bacteria 1+ /hpf (None Seen); Squamous Epithelial Cells - UA 0-5 SEEN /hpf (5-10)
[2022-05-02 12:46] LABS: Anion Gap 2 (5-15); BUN 8 mg/dL (7-18); BUN/Creat Ratio 15.7 RATIO (10-20); Calcium,Total 8.5 mg/dL (8.5-10.1); Chloride 109 mmol/L (98-107); Creatinine, Serum 0.51 mg/dL (0.55-1.02); EST Glomerular Filtration Rate 148 mL/min (>60); Est Glom Filt Rate - Afr Amer 180 mL/min (>60); Estimated Creatinine Clearance 143.82 ml/min; Glucose 89 mg/dL (74-106); Sodium Level 142 mmol/L (136-145)
[2022-05-02 13:31] LABS: Internal QC Validated? YES +Cl - CLEAR BKGD; Pregnancy, Serum, hCG Quali. NEGATIVE Negative
[2022-05-02 14:00] VITALS: RESP 14
[2022-05-02] MEDS: Ketorolac 30 MG/ML Syringe IV (15:26)
[2022-05-02] MEDS: SUMAtriptan 6 MG/0.5 ML Vial SC (15:26)
== END 2022-05-02 16:21 | disposition home or self-care (01) ==
PROVIDERS: Emergency Provider Emergency Medicine; Visit Provider Emergency Medicine
DX: R51.9 Headache, unspecified (principal); R10.11 Right upper quadrant pain; R10.31 Right lower quadrant pain; R11.2 Nausea with vomiting, unspecified; E03.9 Hypothyroidism, unspecified; F17.210 Nicotine dependence, cigarettes, uncomplicated; Z79.899 Other long term (current) drug therapy; Z87.442 Personal history of urinary calculi
CPT/HCPCS: 70450; 74176; 80048; 81001; 84703; 85025; 96374; 96375; 99283; J7030; A4216; J3030

== ENCOUNTER 2023-02-26 16:45 | Emergency (ER) | payer OTHER, MEDICAID, SELFPAY ==
[2023-02-26 16:46] VITALS: BP 113/74; PULSE 76; RESP 15; TEMP 36; O2SAT 99; BMI 25.4
--- NOTE | 2023-02-26 19:11 | EDS_ITS ---
HPI History of Present Illness Chief Complaint: Back Detail of Chief Complaint: Back injury lifting a tire on Thursday. Informant: patient Onset/Context/Timing Onset: Days Context: Sudden Onset Injury: lifting Timing: Continuous Quality: Sharp Location: Thoracic Current Severity: Moderate Maximum Severity: Moderate Worsened by: improves with Movement, Bending and Lifting Relieved by: Remaining Still Associated Symptoms Associated Symptoms: Negative for Numbness, Tingling, Radiation to Right Leg, Radiation to Left Leg, Fever, Abdominal Pain, Dysuria, Unable to Ambulate, Unable to Transfer, Urinary Retention, Urinary Incontinence, Constipation or Fecal Incontinence Narrative Narrative: 32-year-old healthy female no prior back history or surgery. Was helping her change tires on his truck on Thursday she pulled one of the tires off and lifted it weighed more than 40 pounds since then has had sudden onset and con sistent upper back pain. Worse with movement. No weakness. No numbness. No incontinence. No fever. No fall. Prior similar symptoms: No Recent Illness/Hospitalization: No PFSH PFSH Medical History Hypothyroidism Kidney stone Home Medications diazepam 5 mg tablet (Valium) 5 mg PO TID PRN muscle spasm 7 days #20 tabs 02/26/23 [Rx Last Taken Unknown] Allergy/AdvReac Type Severity Reaction Status Date / Time fentanyl Allergy Mild HEADACHE Verified 02/26/23 16:48 shellfish derived Allergy PT UNSURE Verified 02/26/23 16:48 OF REACTION sertraline [From Zoloft] AdvReac PT UNSURE Verified 02/26/23 16:48 OF REACTION Surgical History Hx of tubal ligation Social History Smoking Status: Current every day smoker tobacco type: cigarettes ROS ROS ED ROS Narrative Back pain post lifting a tire. Review of Systems ROS Unobtainable: Denies due to encephalopathy Constitutional Constitutional ED: Denies chills or fever(s) Eyes Eyes: Denies blurry vision ENT ENT ED: Denies ear pain Cardiovascular Cardiovascular: Denies chest pain Respiratory/Chest Respiratory/Chest: Denies dyspnea Gastrointestinal Gastrointestinal: Denies abdominal pain Genitourinary Genitourinary ED: Denies dysuria or hematuria Musculoskeletal Musculoskeletal: Reports back pain; Denies arthralgias, myalgias or neck pain Integumentary Denies abscess or Abrasions Neurologic Neurologic: Denies headache(s) Psychiatric Psychiatric: Denies anxiety or depression Endocrine Endocrinology: Denies cold intolerance Hematologic/Lymphatic Hematologic/Lymphatic: Denies easy bleeding Allergic/Immunologic Allergic/Immunologic ED: Denies mouth swelling or tongue swelling EXAM Physical Exam Narrative Exam Narrative: Well-appearing 32-year-old female. Vital signs stable afebrile. HEENT exam normal. Neck nontender. Lungs clear. Heart regular rhythm no murmur. Chest wall nontender. Abdomen soft nontender. Moving all 4 extremities. Neurovascular intact. Normal sensation. Normal strength. Back reproducible parathoracic soft tissue tenderness consistent with muscle strain and spasm. No spine tenderness. No discoloration or warmth. No bruising. Neurologically she is awake and alert with normal motor strength and sensation. 5 out of 5 project reservoir engineer strength. Dorsi and plantarflexion intact. Const Vital Signs: 02/26/23 16:46 Temperature 96.8 F L Temperature Source Temporal Pulse Rate 76 Respiratory Rate 15 Blood Pressure 113/74 Blood Pressure Mean 87 Pulse Ox 99 Oxygen Delivery Method Room Air Positive well nourished and well developed; Negative for obese, cachectic, contractures or unkempt General Appearance ED: well developed and NAD; Negative for unkempt, cachectic, contractures or pallor Nutritional Appearance: Negative for cachectic or obese HEENT Reports moist mucous membranes Negative for trauma or tenderness Eyes EOMs intact bilaterally General Eye ED: Negative for pale conjunctiva, scleral icterus or other Neck no lymphadenopathy, supple and no JVD General: Negative for tenderness Thyroid: Negative for other Resp normal respiratory effort and clear to auscultation bilaterally Effort and Inspection: Negative for pain with movement Auscultation: Negative for rales, rhonchi or wheezes Cardio regular rate, regular rhythm, S1 normal heart sound, S2 normal heart sound and no murmurs Palpation: Negative for palpable S3 Rate: Negative for bradycardia or tachycardic Rhythm: Negative for abnormal rhythm Bruits: Negative for other GI normal to inspection, nondistended, normoactive bowel sounds, soft to palpation, non-tender, non-distended and no masses Inspection: Negative for abdominal distention Auscultation: Negative for hyperactive bowel sounds Palpation: Negative for tender, guarding or hepatomegaly Back/Spine Negative for normal to inspection or no thoracic nor lumbar tenderness Cervical Spine: cervical spine tenderness Thoracic Spine / Upper Back: paraspinal muscle tenderness Extremity normal to inspection and no clubbing, cyanosis or edema General Extremety ED: Negative for edema or tenderness General Extremity: Negative for edema Neuro oriented x3 Sensorium / Orientation: alert; Negative for confused, lethargic or stuporous Motor Exam: strength 5/5 throughout; Negative for strength abnormal Psych mental status grossly normal Appearance: Negative for unkempt Attitude: No agitated Mood & Affect: Negative for depressed or sad Skin no rashes or lesions noted and no wounds General Skin Exam: Negative for jaundice or pallor Lesions: No lesion noted Rashes: No rashes noted Trauma: Negative for abrasion or puncture Wounds: Negative for wounds noted MDM MDM MDM Narrative Medical decision making narrative: 32-year-old female lifted a tire weighing more than 40 pounds off her 's truck on Thursday since that time is an upper back pain with muscle spasms. No weakness. No back history. Images are not necessary. Exam is consistent with upper back strain and muscle spasms. We talked about treatment options we will do Valium 5 mg 3 times daily. Motrin for pain. And anti-inflammation. Massage. Follow-up as needed. Discharge Plan Triage Chief Complaint: Back ED Provider: Laurent Ya Dx/Rx/DC Orders Clinical Impression: Muscle spasm, Back strain Instructions: ED Back Spasm, No Trauma, ED Muscle Spasm Prescriptions: New diazepam [Valium] 5 mg tablet 5 mg PO TID PRN (Reason: muscle spasm) 7 Days Qty: 20 0RF Primary Care Provider: Care Physician,No Primary Referrals: Jeremiah Jiménez MD [Med Staff - Ham Trimmer] - 1 Week if not improving Care Physician,No Primary [Primary Care Provider] - Activity Restrictions/Additional Instructions: You have a back strain with muscle spasm. Hot shower, warm bath, massage, whirlpool. Motrin 600 to 800 mg 3 times a day. The muscle relaxant Valium 5 mg up to 3 times a day. Do not drive or operate equipment while on it. Follow-up if not improving. Should start feeling better in the next 24 to 72 hours. Disposition Disposition: Home, Self Care
[2023-02-26] MEDS: diazePAM 5 MG Tablet PO (19:16)
== END 2023-02-26 19:19 | disposition home or self-care (01) ==
PROVIDERS: Emergency Provider Emergency Medicine; Visit Provider Emergency Medicine
DX: S29.012A Strain of muscle and tendon of back wall of thorax, initial encounter (principal); F17.210 Nicotine dependence, cigarettes, uncomplicated; M62.838 Other muscle spasm; X50.0XXA Overexertion from strenuous movement or load, initial encounter; Y93.89 Activity, other specified
CPT/HCPCS: 99282

== ENCOUNTER 2023-12-15 08:10 | Emergency (ER) | payer OTHER, SELFPAY ==
[2023-12-15 08:11] VITALS: BP 114/66; PULSE 90; RESP 18; TEMP 37.2; O2SAT 100; BMI 28.6
--- NOTE | 2023-12-15 08:35 | EDS_ITS ---
HPI History of Present Illness Chief Complaint: General Illness Informant: patient Onset/Context/Timing Onset: Days Context: Gradual Onset Timing: Continuous Current Severity: Mild Maximum Severity: Mild Narrative Narrative: 33-year-old female history of kidney stones. Complaining of lightheadedness and malaise. Has been going on for 2 weeks. Denies vomiting or diarrhea. No fever. No dysuria. No abdominal or chest pain. She has had multiple prior ER evaluations with negative workups in the past. Prior similar symptoms: Yes Recent Illness/Hospitalization: No PFSH PFSH Medical History Physical exam, pre-employment Kidney stone Hypothyroidism Home Medications ?Medication ?Instructions ?Recorded ?Last Taken ?Type diazepam 5 mg tablet (Valium) 5 mg PO TID PRN muscle spasm 7 02/26/23 Unknown Rx days #20 tabs Allergy/AdvReac Type Severity Reaction Status Date / Time sertraline (From Zoloft) Allergy Hives Verified 12/15/23 08:22 shellfish derived Allergy PT UNSURE Verified 12/15/23 08:22 OF REACTION fentanyl AdvReac Mild HEADACHE Verified 12/15/23 08:22 Surgical History Hx of tubal ligation Social History Smoking Status: Current every day smoker tobacco type: cigarettes ROS ROS ED ROS Narrative Denies vomiting or diarrhea. Denies fever. Denies chest or abdominal pain. Complaining of general malaise. Constitutional Constitutional ED: Denies chills or fever(s) Eyes Eyes: Denies blurry vision ENT ENT ED: Denies ear pain Cardiovascular Cardiovascular: Denies chest pain Respiratory/Chest Respiratory/Chest: Denies cough or dyspnea Gastrointestinal Gastrointestinal: Denies abdominal pain Genitourinary Genitourinary ED: Denies dysuria or hematuria Musculoskeletal Musculoskeletal: Denies arthralgias Integumentary Denies abscess Neurologic Neurologic: Denies headache(s) Endocrine Endocrinology: Denies cold intolerance Hematologic/Lymphatic Hematologic/Lymphatic: Reports none Allergic/Immunologic Allergic/Immunologic ED: Denies mouth swelling, tongue swelling or urticaria EXAM Physical Exam Narrative Exam Narrative: Well-appearing 33-year-old female. Vital signs are stable afebrile. Pulse ox 100% on room air no hypoxia. H EENT exam normal. Pupils round react light. No facial droop. Moist extremities. No trouble swallowing or breathing. No trauma. Neck nontender no lymphadenopathy. Lungs clear to auscultation bilaterally. Heart regular rate and rhythm no murmur rate about 90. Chest wall ribs nontender. Abdomen soft nontender. No peritoneal signs. Moving all 4 extremities. 5 out of 5 rag cutting machine tender strength. Dorsi plantarflexion intact. Strong radial pulse. Calves are nontender without edema. Back nontender. Skin unremarkable. No petechiae nor purpura no rashes. Neurologically she is awake and alert with no focal motor deficits. NIH score 0. 5 out of 5 rag cutting machine tender strength bilaterally. Dorsi plantarflexion intact. Fingertip to nose within normal limits. No drift. Patient has a completely normal exam. Const Vital Signs: 12/15/23 08:11 12/15/23 08:19 Temperature 99 F Temperature Source Oral Pulse Rate 90 Respiratory Rate 18 Respiratory Effort Normal Respiratory Pattern Normal Blood Pressure 114/66 Blood Pressure Mean 82 Pulse Ox 100 Oxygen Delivery Method Room Air Positive well nourished and well developed; Negative for obese, cachectic, contractures or unkempt General Appearance ED: well developed and NAD; Negative for unkempt, cachectic, contractures, cyanotic, diaphoretic or pallor Nutritional Appearance: Negative for cachectic or obese HEENT Reports TM's clear and moist mucous membranes Negative for trauma or tenderness Tympanic Membrane ED: Yes TM's clear Eyes PERRL and EOMs intact bilaterally General Eye ED: Negative for pale conjunctiva Neck no lymphadenopathy, supple and no JVD General: Negative for tenderness Lymph Lymphatic: Negative for other Chest Wall inspection of chest normal and palpation of chest normal Resp normal respiratory effort and clear to auscultation bilaterally Effort and Inspection: Negative for retractions Auscultation: Negative for rales, rhonchi, wheezes or diminished lung sounds Cardio regular rate, regular rhythm, S1 normal heart sound, S2 normal heart sound and no murmurs Rate: Negative for bradycardia or tachycardic Rhythm: Negative for abnormal rhythm GI normal to inspection, nondistended, normoactive bowel sounds, non-tender, non- distended and no masses Inspection: Negative for abdominal distention Auscultation: normoactive bowel sounds Palpation: soft; Negative for tender, guarding or rebound tenderness present Back/Spine no CVA tenderness General Back: Negative for CVA tenderness Cervical Spine: Negative for cervical spine tenderness Thoracic Spine / Upper Back: Negative for thoracic spinal tenderness or paraspinal muscle tenderness Lumbar Spine / Lower Back: Negative for lumbar spinal tenderness Extremity normal to inspection General Extremety ED: Negative for edema or tenderness General Extremity: Negative for edema Neuro oriented x3, CN's II-XII intact bilaterally and no sensory deficits noted Sensorium / Orientation: alert; Negative for orientation impaired, lethargic or stuporous Motor Exam: strength 5/5 throughout; Negative for general weakness or strength abnormal Psych mental status grossly normal Appearance: Negative for unkempt Attitude: No agitated Mood & Affect: Negative for depressed, anxious or tearful Skin no rashes or lesions noted, no wounds and skin turgor normal General Skin Exam: elasticity normal; Negative for jaundice or pallor Lesions: No lesion noted Rashes: No rashes noted Trauma: Negative for abrasion Wounds: Negative for wounds noted MDM MDM MDM Narrative Medical decision making narrative: 33-year-old female with complaint and general malaise. She is completely normal exam. She does not need any imaging. I do not think lab work would be helpful or diagnostic. I did review multiple prior emergency department evaluations which she had blood work and imaging all of which was negative. Patient be discharged to home. Currently does not have a primary care physician. She was referred to a local private physician office and the clinic. History & Record Review Discussion w/independent historian: Patient Additional record(s) reviewed:: Prior inpatient record, Prior outpatient record, Prior ED visit and Prior labs Discharge Plan Triage Chief Complaint: General Illness ED Provider: Laurent Ya Dx/Rx/DC Orders Clinical Impression: Malaise Prescriptions: No Action diazepam [Valium] 5 mg tablet 5 mg PO TID PRN (Reason: muscle spasm) 7 Days Qty: 20 0RF Primary Care Provider: Care Physician,No Primary Referrals: Jeremiah Jiménez MD [Med Staff - Plunger Shovel Operator] - As soon as possible Judy Herrera [Non-Staff] - As soon as possible Care Physician,No Primary [Primary Care Provider] - Activity Restrictions/Additional Instructions: Your exam is normal. Call and follow-up with a local primary care physician for further evaluation. Print Language: [place] Disposition Disposition: Home, Self Care
== END 2023-12-15 08:44 | disposition home or self-care (01) ==
LOC: ED 08:40
PROVIDERS: Emergency Provider Emergency Medicine; Visit Provider Emergency Medicine
DX: R53.81 Other malaise (principal); Z87.442 Personal history of urinary calculi; E03.9 Hypothyroidism, unspecified; Z98.51 Tubal ligation status; F17.210 Nicotine dependence, cigarettes, uncomplicated
CPT/HCPCS: 99282

== ENCOUNTER 2024-03-28 09:39 | Emergency (ER) | payer BC, SELFPAY ==
[2024-03-28 09:39] VITALS: BP 115/77; PULSE 73; RESP 20; TEMP 36.2; O2SAT 100; BMI 29.2
--- NOTE | 2024-03-28 10:08 | EX.ED.DYSGE1 ---
HPI History of Present Illness Chief Complaint: Back Informant: patient Narrative Narrative: 33-year-old female presenting with back pain. Patient states she was lifting a person on Thursday. She states she lifted wrong and has had pain since. She has tried ibuprofen at home. Denies numbness or weakness. Denies bowel or bladder incontinence. She is able to ambulate with pain. Denies fever. Prior similar symptoms: Yes Recent Illness/Hospitalization: No PFSH PFSH Medical History Physical exam, pre-employment Kidney stone Hypothyroidism Home Medications ?Medication ?Instructions ?Recorded ?Last Taken ?Type diazepam 5 mg tablet (Valium) 5 mg PO TID PRN muscle spasm 7 02/26/23 Unknown Rx days #20 tabs hydrocodone-acetaminophen 5-325mg 1 tab PO Q6H PRN PRN Pain 3 days 03/28/24 Unknown Rx 5mg-325mg #10 TABLETS Allergy/AdvReac Type Severity Reaction Status Date / Time sertraline (From Zoloft) Allergy Hives Verified 03/28/24 09:41 shellfish derived Allergy PT UNSURE Verified 03/28/24 09:41 OF REACTION fentanyl AdvReac Mild HEADACHE Verified 03/28/24 09:41 Surgical History Hx of tubal ligation Social History Smoking Status: Current every day smoker tobacco type: cigarettes ROS ROS ED Constitutional Constitutional ED: Denies fever(s) Eyes Eyes: Denies change in vision ENT ENT ED: Denies rhinorrhea or sore throat Cardiovascular Cardiovascular: Denies chest pain or palpitations Respiratory/Chest Respiratory/Chest: Denies cough or dyspnea Gastrointestinal Gastrointestinal: Denies abdominal pain, diarrhea, nausea or vomiting Genitourinary Genitourinary ED: Denies dysuria Musculoskeletal Musculoskeletal: Reports back pain Integumentary Denies rash Neurologic Neurologic: Denies headache(s) Psychiatric Psychiatric: Denies suicidal thoughts EXAM Physical Exam Const Vital Signs: 03/28/24 09:39 Temperature 97.1 F L Temperature Source Temporal Pulse Rate 73 Respiratory Rate 20 H Blood Pressure 115/77 Blood Pressure Mean 89 Pulse Ox 100 Positive well nourished and well developed General Appearance ED: well developed HEENT Reports normocephalic and head/scalp atraumatic Eyes PERRL and EOMs intact bilaterally Neck supple General: Negative for tenderness Chest Wall inspection of chest normal Resp normal respiratory effort and clear to auscultation bilaterally Cardio regular rate and regular rhythm GI non-tender and non-distended Palpation: soft; Negative for guarding or rebound tenderness present no CVA tenderness Back/Spine Back/Spine Narrative: Bilateral lumbar paraspinal muscle tenderness. Extremity normal to inspection Neuro oriented x3 Neuro Narrative: Normal strength and sensation. Sensorium / Orientation: alert Psych mental status grossly normal Skin no rashes or lesions noted MDM MDM MDM Narrative Medical decision making narrative: 33-year-old female presenting with back pain after lifting. She has tried ibuprofen at home. Denies numbness, weakness, bowel or bladder incontinence. Differential diagnosis includes lumbar strain, sciatica. Patient was given Toradol, morphine, Zofran with some improvement. She is given a work excuse. She is given prescription for short course of [place]. She is given referral to primary care physician, Dr. Loo. She is comfortable with discharge home. Advised to return to the ED for worsening complaints. History & Record Review Discussion w/independent historian: Patient Discharge Plan Triage Chief Complaint: Back ED Provider: Filomena Ha Dx/Rx/DC Orders Clinical Impression: Acute lumbar myofascial strain Instructions: ED Back Sprain/Strain Prescriptions: New hydrocodone-acetaminophen 5-325 mg tablet 1 tab PO Q6H PRN PRN (Reason: Pain) 3 Days Qty: 10 0RF No Action diazepam [Valium] 5 mg tablet 5 mg PO TID PRN (Reason: muscle spasm) 7 Days Qty: 20 0RF Stand Alone Forms: ED Work / School Excuse Primary Care Provider: Care Physician,No Primary Referrals: Jackeline Loo MD [Med Staff - Pick Up Truck Driver] - Care Physician,No Primary [Primary Care Provider] - Print Language: Armenian Disposition Disposition: Home, Self Care
[2024-03-28] MEDS: Ondansetron ODT 4 MG Tablet PO (10:26)
[2024-03-28] MEDS: morphine 10 MG/ML Syringe 8 MG IM (10:26)
[2024-03-28] MEDS: Ketorolac 30 MG/ML Syringe IM (10:26)
--- NOTE | 2024-03-28 11:27 | CM.ED ---
Social Work Reason for visit: No PCP Patient verified that she does not currently have a PCP. [facility] provider list was given. No further concerns identified at this time. Alis Benites, GALLERY MANAGER, FINAL ASSEMBLER
== END 2024-03-28 11:22 | disposition home or self-care (01) ==
PROVIDERS: Emergency Provider Emergency Medicine; Visit Provider Emergency Medicine
DX: S39.012A Strain of muscle, fascia and tendon of lower back, initial encounter (principal); F17.210 Nicotine dependence, cigarettes, uncomplicated; E03.9 Hypothyroidism, unspecified; X50.0XXA Overexertion from strenuous movement or load, initial encounter; Z98.51 Tubal ligation status
CPT/HCPCS: 96372; 99282; J2405